=== PATIENT | female | born 1940 | race Caucasian/White ===

== ENCOUNTER 2017-12-13 09:21 | Inpatient (IN) | payer MEDICARE, OTHER ==
[2017-12-13 09:28] LABS: Glucose,Whole Blood 157 mg/dL (75-99)
[2017-12-13] MEDS ORDERED: SODIUM CHLORIDE 0.9% 500 ML IV STA (09:29)
[2017-12-13] MEDS ORDERED: SODIUM CHLORIDE 0.9% 1,000 ML IV STA ×2 (09:29→12:16)
--- NOTE | 2017-12-13 09:39 | ED ---
Weakness HPI - General Chief complaint: Weakness Stated complaint: Weakness Time Seen by Provider: 12/13/17 09:21 Source: patient, EMS, RN notes reviewed, old records reviewed Mode of arrival: EMS Limitations: no limitations - History of Present Illness Initial comments: This is a 77-year-old female with a history of hypertension diabetes dementia among other medical problems who was brought in for evaluation for hypoglycemia and dizziness. She apparently was found have a glucose in the 40s was given orange juice is still stayed in the 40s was given glucagon is still stayed in the 40s she also is had dizziness for past 3 days normally is able ambulate but now cannot without marked assistance. She also noted have a temperature 101.4 at the nursing facility today no reports of any cough rhinorrhea sore throat or dysuria. She did become more alert and route. Her glucose has improved it. No other reported problems at this time MD Complaint: generalized weakness - Related Data Home Medications Medication Instructions Recorded Confirmed Aspirin EC [Ecotrin] 325 mg PO HS 02/12/15 12/13/17 HYDROcodone/APAP 10-325MG [[place] 1 tab PO BID 02/12/15 12/13/17 10-325] Insulin Detemir [Levemir] 10 unit SQ QAM 02/12/15 12/13/17 Melatonin 3 mg PO HS PRN 02/12/15 12/13/17 Menthol [Biofreeze] 1 applic TOPICAL Q6H PRN 02/12/15 12/13/17 Metoprolol Succinate [Toprol XL] 25 mg PO DAILY 02/12/15 12/13/17 Milnacipran HCl [Savella] 50 mg PO HS 02/12/15 12/13/17 Pregabalin [Lyrica] 150 mg PO BID 02/12/15 12/13/17 buPROPion SR [Wellbutrin SR] 150 mg PO BID@0800,2000 02/12/15 12/13/17 metFORMIN HCL 1,000 mg PO BID 02/12/15 12/13/17 tiZANidine [Zanaflex] 2 mg PO BID PRN 02/12/15 12/13/17 Acetaminophen Tab [Tylenol Tab] 650 mg PO Q4H PRN 12/13/17 12/13/17 Cholecalciferol (Vitamin D3) 2,000 unit PO DAILY 12/13/17 12/13/17 [Vitamin D3] Furosemide [Lasix] 20 mg PO BID 12/13/17 12/13/17 HYDROcodone/APAP 10-325MG [[place] 1 tab PO Q8H PRN 12/13/17 12/13/17 10-325] Insulin Detemir [Levemir] 25 unit SQ HS 12/13/17 12/13/17 Lisinopril [Zestril] 10 mg PO DAILY 12/13/17 12/13/17 Pravastatin Sodium [Pravachol] 40 mg PO HS 12/13/17 12/13/17 Ranitidine HCl [Zantac] 150 mg PO BID 12/13/17 12/13/17 glipiZIDE [Glucotrol] 10 mg PO HS 12/13/17 12/13/17 guaiFENesin [guaiFENesin Oral 100 mg PO Q4H PRN 12/13/17 12/13/17 Solution] Allergies Allergy/AdvReac Type Severity Reaction Status Date / Time Aminoglycosides Allergy Unknown Verified 12/13/17 13:01 bacitracin Allergy Unknown Verified 12/13/17 13:01 [From Neosporin ([id number])] bacitracin zinc Allergy Unknown Verified 12/13/17 13:01 [From Neosporin ([id number])] iodine Allergy Unknown Verified 12/13/17 13:01 iron dextran complex Allergy Unknown Verified 12/13/17 13:01 levofloxacin [From Levaquin] Allergy Unknown Verified 12/13/17 13:01 neomycin [Neomycin] Allergy Unknown Verified 12/13/17 13:01 neomycin sulfate Allergy Unknown Verified 12/13/17 13:01 [From Neosporin ([id number])] nickel [Nickel] Allergy Unknown Verified 12/13/17 13:01 Penicillins Allergy Unknown Verified 12/13/17 13:01 polymyxin B Allergy Unknown Verified 12/13/17 13:01 [From Neosporin ([id number])] Quinolones Allergy Unknown Verified 12/13/17 13:01 Sulfa (Sulfonamide Allergy Unknown Verified 12/13/17 13:01 Antibiotics) trazodone HCl [From Desyrel] Allergy Unknown Verified 12/13/17 13:01 sulfacetamide sodium AdvReac Unknown Verified 02/12/15 09:00 [From Sulfamide] Review of Systems ROS Statement: Those systems with pertinent positive or pertinent negative responses have been documented in the HPI. ROS Other: All systems not noted in ROS Statement are negative. Past Medical History Past Medical History: Coronary Artery Disease (CAD), COPD, Dementia, Diabetes Mellitus, GERD/Reflux, Hyperlipidemia, Hypertension, Osteoarthritis (OA) Additional Past Medical History / Comment(s): 02/12/15 Pt presented to [facility] ER via EMs with altered mental status post fall and struck back of head per nursing facility. Pt c/o L hip and abdominal pain. Pt states she has had diarrhea x 3 days. Past medical hx obtained by speaking with pt and past and present medical records. 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 at [facility], falls, uti's, severe GERD, migraines, vascular dementia, veritgo, fibromyalgia, chronic back pain, polyps, sore throat. History of Any Multi-Drug Resistant Organisms: None Reported Past Surgical History: Joint Replacement Additional Past Surgical History / Comment(s): 2008 LEFT HIP REPLACEMENT, 2010 bilateral cataract removal, 1994 spinal fusion L4-L5 with screws, 1997 total R knee, esophagrams and scopes of stomach. Past Anesthesia/Blood Transfusion Reactions: No Reported Reaction Past Psychological History: Anxiety, Depression Smoking Status: Former smoker Past Alcohol Use History: None Reported Past Drug Use History: None Reported - Past Family History Mother Family Medical History: No Reported History Additional Family Medical History / Comment(s): Mother lived to be 90 yrs old. Father Family Medical History: No Reported History General Exam - General Exam Comments Initial Comments: This is a well-developed well-nourished awake alert oriented 3 female Limitations: no limitations General appearance: alert, in no apparent distress Head exam: Present: atraumatic, normocephalic, normal inspection Eye exam: Present: normal appearance, PERRL, EOMI. Absent: scleral icterus, conjunctival injection, periorbital swelling ENT exam: Present: mucous membranes dry Neck exam: Present: normal inspection. Absent: tenderness, meningismus, lymphadenopathy Respiratory exam: Present: normal lung sounds bilaterally. Absent: respiratory distress, wheezes, rales, rhonchi, stridor Cardiovascular Exam: Present: regular rate, normal rhythm, normal heart sounds. Absent: systolic murmur, diastolic murmur, rubs, gallop, clicks GI/Abdominal exam: Present: soft, normal bowel sounds. Absent: distended, tenderness, guarding, rebound, rigid Extremities exam: Present: normal inspection, full ROM, normal capillary refill. Absent: tenderness, pedal edema, joint swelling, calf tenderness Back exam: Present: normal inspection Neurological exam: Present: alert, oriented X3, CN II-XII intact Psychiatric exam: Present: normal affect, normal mood Skin exam: Present: warm, dry, intact, normal color. Absent: rash Course Vital Signs 12/13/17 12/13/17 12/13/17 09:23 10:22 11:36 Temperature 97 F L Pulse Rate 90 87 60 Respiratory 18 16 18 Rate Blood Pressure 113/65 119/84 143/62 O2 Sat by Pulse 91 L 97 98 Oximetry 12/13/17 12/13/17 12:26 13:01 Temperature Pulse Rate 80 84 Respiratory 18 18 Rate Blood Pressure 136/62 139/64 O2 Sat by Pulse 95 96 Oximetry - Reevaluation(s) Reevaluation #1: 12/13/17 13:30 Reevaluation of the patient after her initial encounter revealed no change Reevaluation #2: 12/13/17 13:31 He lactic acidosis is likely on the basis of acute renal failure the patient will be placed on antibiotic as a precaution. EKG Findings - EKG Results: EKG: interpreted by ERMEdgard, sinus rhythm (Sinus rhythm with first-degree AV block rate was 91. Interval to 12 QRS duration 86 QT since QTC of 46/499 evidence of left exodeviation pulmonary disease pattern and nonspecific inferior changes) Medical Decision Making - Medical Decision Making I did discuss findings with the patient and with Dr. Jean. Patient does demonstrate acute renal failure with CHF she did have a hypoglycemic episode also she'll be admitted with consultation by nephrology. - Lab Data Result diagrams: 12/13/17 09:48 12/13/17 09:48 Lab Results 12/13/17 12/13/17 12/13/17 Range/Units 09:26 09:48 09:48 WBC (3.8-10.6) k/uL RBC (3.80-5.40) m/uL Hgb (11.4-16.0) gm/dL Hct (34.0-46.0) % MCV (80.0-100.0) fL MCH (25.0-35.0) pg MCHC (31.0-37.0) g/dL RDW (11.5-15.5) % Plt Count (150-450) k/uL Neutrophils % % Lymphocytes % % Monocytes % % Eosinophils % % Basophils % % Neutrophils # (1.3-7.7) k/uL Lymphocytes # (1.0-4.8) k/uL Monocytes # (0-1.0) k/uL Eosinophils # (0-0.7) k/uL Basophils # (0-0.2) k/uL Sodium 144 (137-145) mmol/L Potassium 6.3 H* (3.5-5.1) mmol/L Chloride 101 (98-107) mmol/L Carbon Dioxide 19 L (22-30) mmol/L Anion Gap 24 mmol/L BUN 54 H (7-17) mg/dL Creatinine 4.70 H (0.52-1.04) mg/dL Est GFR (CKD-EPI)AfAm 10 (>60 ml/min/1.73 sqM) Est GFR (CKD-EPI)NonAf 9 (>60 ml/min/1.73 sqM) Glucose 162 H (74-99) mg/dL POC Glucose (mg/dL) 157 H (75-99) mg/dL POC Glu Instructional Design Manager ID He Segura Lactic Ac Sepsis Rflx Plasma Lactic Acid Mariano (0.7-2.0) mmol/L Calcium 8.4 (8.4-10.2) mg/dL Magnesium 2.0 (1.6-2.3) mg/dL Total Bilirubin 0.4 (0.2-1.3) mg/dL AST 16 (14-36) U/L ALT 19 (9-52) U/L Alkaline Phosphatase 57 (38-126) U/L Ammonia <9 (<30) umol/L Total Creatine Kinase (30-135) U/L CK-MB (CK-2) (0.0-2.4) ng/mL CK-MB (CK-2) Rel Index Troponin I (0.000-0.034) ng/mL Total Protein 6.1 L (6.3-8.2) g/dL Albumin 3.9 (3.5-5.0) g/dL Amylase 39 (30-110) U/L Lipase 67 (23-300) U/L Urine Color Urine Appearance (Clear) Urine pH (5.0-8.0) Ur Specific [place] (1.001-1.035) Urine Protein (Negative) Urine Glucose (UA) (Negative) Urine Ketones (Negative) Urine Blood (Negative) Urine Nitrite (Negative) Urine Bilirubin (Negative) Urine Urobilinogen (<2.0) mg/dL Ur Leukocyte Esterase (Negative) Urine RBC (0-5) /hpf Urine WBC (0-5) /hpf Ur Squamous Epith Cells (0-4) /hpf Urine Bacteria (None) /hpf Hyaline Casts (0-2) /lpf Urine Mucus (None) /hpf 12/13/17 12/13/17 12/13/17 Range/Units 09:48 09:48 09:48 WBC 17.2 H (3.8-10.6) k/uL RBC 4.08 (3.80-5.40) m/uL Hgb 12.6 (11.4-16.0) gm/dL Hct 38.7 (34.0-46.0) % MCV 94.9 (80.0-100.0) fL MCH 31.0 (25.0-35.0) pg MCHC 32.7 (31.0-37.0) g/dL RDW 13.0 (11.5-15.5) % Plt Count 228 (150-450) k/uL Neutrophils % 89 % Lymphocytes % 5 % Monocytes % 5 % Eosinophils % 0 % Basophils % 0 % Neutrophils # 15.2 H (1.3-7.7) k/uL Lymphocytes # 0.9 L (1.0-4.8) k/uL Monocytes # 0.8 (0-1.0) k/uL Eosinophils # 0.0 (0-0.7) k/uL Basophils # 0.1 (0-0.2) k/uL Sodium (137-145) mmol/L Potassium (3.5-5.1) mmol/L Chloride (98-107) mmol/L Carbon Dioxide (22-30) mmol/L Anion Gap mmol/L BUN (7-17) mg/dL Creatinine (0.52-1.04) mg/dL Est GFR (CKD-EPI)AfAm (>60 ml/min/1.73 sqM) Est GFR (CKD-EPI)NonAf (>60 ml/min/1.73 sqM) Glucose (74-99) mg/dL POC Glucose (mg/dL) (75-99) mg/dL POC Glu Instructional Design Manager ID Lactic Ac Sepsis Rflx Plasma Lactic Acid Mariano 5.1 H* (0.7-2.0) mmol/L Calcium (8.4-10.2) mg/dL Magnesium (1.6-2.3) mg/dL Total Bilirubin (0.2-1.3) mg/dL AST (14-36) U/L ALT (9-52) U/L Alkaline Phosphatase (38-126) U/L Ammonia (<30) umol/L Total Creatine Kinase 28 L (30-135) U/L CK-MB (CK-2) 1.3 (0.0-2.4) ng/mL CK-MB (CK-2) Rel Index 4.6 Troponin I 0.016 (0.000-0.034) ng/mL Total Protein (6.3-8.2) g/dL Albumin (3.5-5.0) g/dL Amylase (30-110) U/L Lipase (23-300) U/L Urine Color Urine Appearance (Clear) Urine pH (5.0-8.0) Ur Specific [place] (1.001-1.035) Urine Protein (Negative) Urine Glucose (UA) (Negative) Urine Ketones (Negative) Urine Blood (Negative) Urine Nitrite (Negative) Urine Bilirubin (Negative) Urine Urobilinogen (<2.0) mg/dL Ur Leukocyte Esterase (Negative) Urine RBC (0-5) /hpf Urine WBC (0-5) /hpf Ur Squamous Epith Cells (0-4) /hpf Urine Bacteria (None) /hpf Hyaline Casts (0-2) /lpf Urine Mucus (None) /hpf 12/13/17 12/13/17 Range/Units 10:21 11:28 WBC (3.8-10.6) k/uL RBC (3.80-5.40) m/uL Hgb (11.4-16.0) gm/dL Hct (34.0-46.0) % MCV (80.0-100.0) fL MCH (25.0-35.0) pg MCHC (31.0-37.0) g/dL RDW (11.5-15.5) % Plt Count (150-450) k/uL Neutrophils % % Lymphocytes % % Monocytes % % Eosinophils % % Basophils % % Neutrophils # (1.3-7.7) k/uL Lymphocytes # (1.0-4.8) k/uL Monocytes # (0-1.0) k/uL Eosinophils # (0-0.7) k/uL Basophils # (0-0.2) k/uL Sodium (137-145) mmol/L Potassium (3.5-5.1) mmol/L Chloride (98-107) mmol/L Carbon Dioxide (22-30) mmol/L Anion Gap mmol/L BUN (7-17) mg/dL Creatinine (0.52-1.04) mg/dL Est GFR (CKD-EPI)AfAm (>60 ml/min/1.73 sqM) Est GFR (CKD-EPI)NonAf (>60 ml/min/1.73 sqM) Glucose (74-99) mg/dL POC Glucose (mg/dL) (75-99) mg/dL POC Glu Instructional Design Manager ID Lactic Ac Sepsis Rflx Y Plasma Lactic Acid Mariano (0.7-2.0) mmol/L Calcium (8.4-10.2) mg/dL Magnesium (1.6-2.3) mg/dL Total Bilirubin (0.2-1.3) mg/dL AST (14-36) U/L ALT (9-52) U/L Alkaline Phosphatase (38-126) U/L Ammonia (<30) umol/L Total Creatine Kinase (30-135) U/L CK-MB (CK-2) (0.0-2.4) ng/mL CK-MB (CK-2) Rel Index Troponin I (0.000-0.034) ng/mL Total Protein (6.3-8.2) g/dL Albumin (3.5-5.0) g/dL Amylase (30-110) U/L Lipase (23-300) U/L Urine Color Yellow Urine Appearance Cloudy H (Clear) Urine pH 5.0 (5.0-8.0) Ur Specific [place] 1.014 (1.001-1.035) Urine Protein 1+ H (Negative) Urine Glucose (UA) Negative (Negative) Urine Ketones Trace H (Negative) Urine Blood Negative (Negative) Urine Nitrite Negative (Negative) Urine Bilirubin Negative (Negative) Urine Urobilinogen <2.0 (<2.0) mg/dL Ur Leukocyte Esterase Negative (Negative) Urine RBC 1 (0-5) /hpf Urine WBC 1 (0-5) /hpf Ur Squamous Epith Cells <1 (0-4) /hpf Urine Bacteria Rare H (None) /hpf Hyaline Casts 3 H (0-2) /lpf Urine Mucus Occasional H (None) /hpf - Radiology Data Radiology results: report reviewed (I did review the imaging and reports which demonstrate CHF and pleural effusions bilaterally.), image reviewed Disposition Clinical Impression: Acute renal failure (ARF), Hypoglycemia, Lactic acidosis, Hyperkalemia Disposition: ADMITTED IP TO THIS [facility] Condition: Stable Referrals: Nimisha Ferrara MD [Primary Care Provider] - 1-2 days
[2017-12-13 10:13] LABS: Basophils # (A) 0.1 k/uL (0-0.2); Basophils % (A) 0 %; Eosinophils % (A) 0 %; HCT 38.7 % (34.0-46.0); HGB 12.6 gm/dL (11.4-16.0); Lymphocytes # (A) 0.9 k/uL (1.0-4.8); Lymphocytes % (A) 5 %; MCHC 32.7 g/dL (31.0-37.0); MCV 94.9 fL (80.0-100.0); Mean Platelet Volume 7.9; Monocytes # (A) 0.8 k/uL (0-1.0); Monocytes % (A) 5 %; Neutrophils # (A) 15.2 k/uL (1.3-7.7); Neutrophils % (A) 89 %; Platelet Count 228 k/uL (150-450); RBC 4.08 m/uL (3.80-5.40); WBC 17.2 k/uL (3.8-10.6)
[2017-12-13 10:19] LABS: Albumin 3.9 g/dL (3.5-5.0); Calcium 8.4 mg/dL (8.4-10.2); Total Bilirubin 0.4 mg/dL (0.2-1.3); Total Protein 6.1 g/dL (6.3-8.2)
[2017-12-13 10:22] LABS: Potassium 6.3 mmol/L (3.5-5.1)
[2017-12-13 10:44] LABS: Creatine Kinase MB 1.3 ng/mL (0.0-2.4); Troponin I 0.016 ng/mL (0.000-0.034)
--- NOTE | 2017-12-13 11:25 | XR ---
EXAMINATION TYPE: XR chest 2V DATE OF EXAM: 12/13/2017 HISTORY: cough. REFERENCE: Previous study dated 11/16/2013. FINDINGS: The heart is enlarged. There is vascular congestion and subtle interstitial change. There a re small, bilateral effusions. There is bibasilar atelectasis. IMPRESSION: 1. FINDINGS MOST CONSISTENT WITH CONGESTIVE HEART FAILURE. 2. BILATERAL EFFUSIONS. 3. CARDIOMEGALY. 4. BIBASILAR ATELECTATIC CHANGE.
--- NOTE | 2017-12-13 11:29 | CT ---
EXAMINATION TYPE: CT brain wo con DATE OF EXAM: 12/13/2017 COMPARISON: Previous study dated 02/12/2015. HISTORY: Weakness and dizziness CT DLP: 1036 mGycm Automated exposure control for dose reduction was used. FINDINGS: There are mild, generalized changes of sulcal prominence and ventriculomegaly, compatible with atroph ic change. There is mild, diffuse periventricular white matter change compatible with small vessel is chemic change. No acute focal lesion, mass effect or midline shift is seen. I do not see evidence of intracranial blood. Visualized portions of the paranasal sinuses and mastoids are clear. The bony calvarium is intact. IMPRESSION: 1. NO ACUTE INTRACRANIAL LESION. 2. DEGENERATIVE CHANGE.
[2017-12-13 11:43] LABS: Appearance,Urine Cloudy (Clear); Bacteria,Urine Rare /hpf; Bilirubin,Urine Negative (Negative); Blood,Urine Negative (Negative); Color,Urine Yellow; Glucose,Urine (UA) Negative (Negative); Hyaline Casts,Urine 3 /lpf (0-2); Ketones,Urine Trace (Negative); Leukocyte Esterase,Urine Negative (Negative); Mucus,Urine Occasional /hpf; Nitrite,Urine Negative (Negative); Protein,Urine 1+ (Negative); RBC,Urine 1 /hpf (0-5); Specific Gravity,Urine 1.014 (1.001-1.035); Squamous Epithelial Cell,Urine <1 /hpf (0-4); Urobilinogen,Urine <2.0 mg/dL (<2.0); WBC,Urine 1 /hpf (0-5)
[2017-12-13] MEDS ORDERED: cefTRIAXone IN SWFI 1,000 MG/10 ML SYRINGE IVP STA (12:16)
[2017-12-13] MEDS ORDERED: FUROSEMIDE 10 MG/ML 4 ML VIAL IV STA (13:32)
[2017-12-13] MEDS ORDERED: NALOXONE 0.4 MG/ML 1 ML VIAL IV PRN (13:33)
[2017-12-13] MEDS ORDERED: HYDROcodone/APAP 10-325MG 1 EACH TAB PO PRN (13:35)
[2017-12-13] MEDS ORDERED: guaiFENesin SYRUP 100MG/5ML 200 MG/10 ML CUP PO PRN (13:35)
[2017-12-13] MEDS ORDERED: MELATONIN 3 MG TABLET PO PRN (13:35)
[2017-12-13] MEDS ORDERED: METHYL SALICYLATE/MENTHOL CREAM 5 OZ TOPICAL PRN (13:35)
[2017-12-13] MEDS: SODIUM POLYSTYRENE SULFONATE 15 GM/60 ML BOTTLE PO STA ×2 (13:55→13:58)
[2017-12-13] MEDS ORDERED: SODIUM POLYSTYRENE SULFONATE 15 GM/60 ML BOTTLE PO STA (13:58)
[2017-12-13 14:46] VITALS: BMI 18.3
[2017-12-13] MEDS: metFORMIN 500 MG TAB PO SCH (15:59)
[2017-12-13] MEDS: FUROSEMIDE 20 MG TAB PO SCH (15:59)
[2017-12-13] MEDS: IPRATROPIUM-ALBUTEROL 3 ML NEB INHALATION SCH ×2 (16:25→20:09)
[2017-12-13 17:13] LABS: Glucose,Whole Blood 146 mg/dL (75-99)
[2017-12-13] MEDS: FAMOTIDINE 20 MG TAB PO SCH (19:40)
[2017-12-13] MEDS: PREGABALIN 75 MG CAP PO SCH (19:40)
[2017-12-13] MEDS: ASPIRIN 325 MG TAB PO SCH (19:40)
[2017-12-13] MEDS: buPROPion SR 150 MG TABLET.ER PO SCH (19:40)
[2017-12-13] MEDS ORDERED: IPRATROPIUM-ALBUTEROL 3 ML NEB INHALATION PRN (20:11)
[2017-12-13 20:39] LABS: Glucose,Whole Blood 108 mg/dL (75-99)
[2017-12-13] MEDS: glipiZIDE 10 MG TAB PO SCH (20:47)
[2017-12-13] MEDS: PRAVASTATIN SODIUM 40 MG TAB PO SCH (20:47)
[2017-12-13] MEDS ORDERED: SAVELLA 50 MG PO SCH (21:00)
[2017-12-13] MEDS ORDERED: INSULIN DETEMIR 100 UNIT/ML 10 ML VIAL SQ SCH (21:00)
[2017-12-14] MEDS ORDERED: SODIUM CHLORIDE 0.9% 500 ML IV ONE (00:08)
[2017-12-14] MEDS: SODIUM CHLORIDE 0.9% 1,000 ML IV SCH ×2 (01:03→15:20)
[2017-12-14 06:21] LABS: Glucose,Whole Blood 98 mg/dL (75-99)
[2017-12-14 06:41] LABS: Basophils % (A) 0 %; Eosinophils % (A) 0 %; HCT 34.9 % (34.0-46.0); HGB 11.7 gm/dL (11.4-16.0); Lymphocytes # (A) 1.2 k/uL (1.0-4.8); Lymphocytes % (A) 11 %; MCH 31.2 pg (25.0-35.0); MCHC 33.6 g/dL (31.0-37.0); Mean Platelet Volume 8.3; Monocytes # (A) 0.7 k/uL (0-1.0); Monocytes % (A) 7 %; Neutrophils # (A) 8.7 k/uL (1.3-7.7); Neutrophils % (A) 80 %; Platelet Count 199 k/uL (150-450); RBC 3.76 m/uL (3.80-5.40); RDW 13.3 % (11.5-15.5); WBC 10.8 k/uL (3.8-10.6)
[2017-12-14 06:53] LABS: Calcium 7.7 mg/dL (8.4-10.2); Potassium 4.6 mmol/L (3.5-5.1)
[2017-12-14] MEDS: metFORMIN 500 MG TAB PO SCH (09:03)
[2017-12-14] MEDS: PREGABALIN 75 MG CAP PO SCH ×2 (09:09→20:51)
[2017-12-14] MEDS: FAMOTIDINE 20 MG TAB PO SCH ×2 (09:09→20:09)
[2017-12-14] MEDS: buPROPion SR 150 MG TABLET.ER PO SCH ×2 (09:10→20:09)
[2017-12-14] MEDS: FUROSEMIDE 20 MG TAB PO SCH (09:10)
[2017-12-14] MEDS: CHOLECALCIFEROL 1,000 UNIT TAB PO SCH (09:10)
[2017-12-14] MEDS: METOPROLOL SUCCINATE (ER) 25 MG TAB.ER.24H PO SCH (09:10)
[2017-12-14] MEDS: INSULIN DETEMIR 100 UNIT/ML 10 ML VIAL SQ SCH ×2 (11:00→20:49)
--- NOTE | 2017-12-14 11:57 | P.HPIM ---
History of Present Illness H&P Date: 12/14/17 Chief Complaint: Hypoglycemia This is a 77-year-old female well-known to me as a long-term resident at a local [facility] with complex past medical history noted below presented to the emergency room with hypoglycemia. Patient was found to be confused and blood glucose check at the [facility] was in the 40s. Patient was given orange juice and glucagon with some improvement in her medication. Patient was brought to the emergency room and underwent computed tomography scan of the brain showing no acute intracranial findings. Her initial lab work showed evidence of acute kidney injury with significant lactic acidosis. Patient herself does not have any recollection of what happened. She said that she is not sure why she is in the hospital. She is awake and alert. She is oriented 2. She does not have any complaint at this time. She said that she does not feel hungry. She did not eat breakfast this morning. She denies abdominal pain , nausea, vomiting, or abnormal bowel movement. She was noted to have significant cardiomegaly with evidence of fluid overload on chest x-ray. Patient herself denies any shortness of breath. She is not known to have any underlying heart failure. Review of Systems Review of system: 14 points review of systems were obtained and were negative except to what were mentioned in the HPI. Past Medical History Past Medical History: Coronary Artery Disease (CAD), COPD, Dementia, Diabetes Mellitus, GERD/Reflux, Hyperlipidemia, Hypertension, Osteoarthritis (OA) Additional Past Medical History / Comment(s): 02/12/15 Pt presented to [facility] ER via [facility] with altered mental status post fall and struck back of head per nursing facility. Pt c/o L hip and abdominal pain. Pt states she has had diarrhea x 3 days. Past medical hx obtained by speaking with pt and past and present medical records. 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 at [facility], falls, uti's, severe GERD, migraines, vascular dementia, veritgo, fibromyalgia, chronic back pain, polyps, sore throat. History of Any Multi-Drug Resistant Organisms: None Reported Past Surgical History: Joint Replacement Additional Past Surgical History / Comment(s): 2008 LEFT HIP REPLACEMENT, 2010 bilateral cataract removal, 1994 spinal fusion L4-L5 with screws, 1997 total R knee, esophagrams and scopes of stomach. Past Anesthesia/Blood Transfusion Reactions: No Reported Reaction Past Psychological History: Anxiety, Depression Additional Psychological History / Comment(s): Pt resides in [facility]. She states recently she has stayed in bed because she has not been feeling well but prior to that they assisted her to a wheelchair. She needs assistance with. bathing and dressing and toileting. She feeds herself. Smoking Status: Former smoker Past Alcohol Use History: None Reported Additional Past Alcohol Use History / Comment(s): Pt states she was a 1 1/2 ppd smoker which she started at age 21 and 1 1/2 yrs ago more or less but will smoke a couple cigs on family outings. She states she used to be a weekend drinker >7/week but. stopped that many yrs ago. Pt is on a regular thin liquid diet. Past Drug Use History: None Reported - Past Family History Mother Family Medical History: No Reported History Additional Family Medical History / Comment(s): Mother lived to be 90 yrs old. Father Family Medical History: No Reported History Medications and Allergies Home Medications Medication Instructions Recorded Confirmed Type Aspirin EC [Ecotrin] 325 mg PO HS 02/12/15 12/13/17 History HYDROcodone/APAP 10-325MG [Hester 1 tab PO BID 02/12/15 12/13/17 History 10-325] Insulin Detemir [Levemir] 10 unit SQ QAM 02/12/15 12/13/17 History Melatonin 3 mg PO HS PRN 02/12/15 12/13/17 History Menthol [Biofreeze] 1 applic TOPICAL Q6H PRN 02/12/15 12/13/17 History Metoprolol Succinate [Toprol XL] 25 mg PO DAILY 02/12/15 12/13/17 History Milnacipran HCl [Savella] 50 mg PO HS 02/12/15 12/13/17 History Pregabalin [Lyrica] 150 mg PO BID 02/12/15 12/13/17 History buPROPion SR [Wellbutrin SR] 150 mg PO BID@0800,2000 02/12/15 12/13/17 History metFORMIN HCL 1,000 mg PO BID 02/12/15 12/13/17 History tiZANidine [Zanaflex] 2 mg PO BID PRN 02/12/15 12/13/17 History Acetaminophen Tab [Tylenol Tab] 650 mg PO Q4H PRN 12/13/17 12/13/17 History Cholecalciferol (Vitamin D3) 2,000 unit PO DAILY 12/13/17 12/13/17 History [Vitamin D3] Furosemide [Lasix] 20 mg PO BID 12/13/17 12/13/17 History HYDROcodone/APAP 10-325MG [Hester 1 tab PO Q8H PRN 12/13/17 12/13/17 History 10-325] Insulin Detemir [Levemir] 25 unit SQ HS 12/13/17 12/13/17 History Lisinopril [Zestril] 10 mg PO DAILY 12/13/17 12/13/17 History Pravastatin Sodium [Pravachol] 40 mg PO HS 12/13/17 12/13/17 History Ranitidine HCl [Zantac] 150 mg PO BID 12/13/17 12/13/17 History glipiZIDE [Glucotrol] 10 mg PO HS 12/13/17 12/13/17 History guaiFENesin [guaiFENesin Oral 100 mg PO Q4H PRN 12/13/17 12/13/17 History Solution] Allergies Allergy/AdvReac Type Severity Reaction Status Date / Time Aminoglycosides Allergy Unknown Verified 12/13/17 13:01 bacitracin Allergy Unknown Verified 12/13/17 13:01 [From Neosporin ([id number])] bacitracin zinc Allergy Unknown Verified 12/13/17 13:01 [From Neosporin ([id number])] iodine Allergy Unknown Verified 12/13/17 13:01 iron dextran complex Allergy Unknown Verified 12/13/17 13:01 levofloxacin [From Levaquin] Allergy Unknown Verified 12/13/17 13:01 neomycin [Neomycin] Allergy Unknown Verified 12/13/17 13:01 neomycin sulfate Allergy Unknown Verified 12/13/17 13:01 [From Neosporin ([id number])] nickel [Nickel] Allergy Unknown Verified 12/13/17 13:01 Penicillins Allergy Unknown Verified 12/13/17 13:01 polymyxin B Allergy Unknown Verified 12/13/17 13:01 [From Neosporin ([id number])] Quinolones Allergy Unknown Verified 12/13/17 13:01 Sulfa (Sulfonamide Allergy Unknown Verified 12/13/17 13:01 Antibiotics) trazodone HCl [From Desyrel] Allergy Unknown Verified 12/13/17 13:01 sulfacetamide sodium AdvReac Unknown Verified 02/12/15 09:00 [From Sulfamide] Physical Exam Vitals: Vital Signs Temp Pulse Pulse Resp BP BP BP 12/14/17 08:00 98.8 F 98 18 125/57 12/14/17 04:00 98.7 F 95 18 125/60 12/14/17 02:00 112/51 119/54 12/13/17 23:45 98.4 F 96 18 102/55 12/13/17 19:30 98.4 F 93 18 147/67 12/13/17 16:00 18 12/13/17 14:42 96.9 F L 89 18 159/74 12/13/17 14:15 97.4 F L 88 20 153/69 12/13/17 13:01 84 18 139/64 12/13/17 12:26 80 18 136/62 Pulse Ox 12/14/17 08:00 92 L 12/14/17 04:00 92 L 12/14/17 02:00 12/13/17 23:45 97 12/13/17 19:30 92 L 12/13/17 16:00 12/13/17 14:42 94 L 12/13/17 14:15 96 12/13/17 13:01 96 12/13/17 12:26 95 Intake and Output 12/13/17 12/14/17 12/14/17 22:59 06:59 14:59 Intake Total 1050 0 Output Total 500 Balance 550 0 Intake: Intake, IV Titration 950 Amount Sodium Chloride 0.9% 1, 450 000 ml @ 75 mls/hr IV . [id number] [facility] Rx#:[id number] Sodium Chloride 0.9% 500 500 ml @ 999 mls/hr IV .Q31M ONE Rx#:[id number] Oral 100 0 Output: Urine 500 Other: Voiding Method Diaper Diaper Incontinent Incontinent # Voids 0 Weight 50.1 kg General: The patient is awake and alert, in no distress Eye: there is normal conjunctiva bilaterally. Neck: The neck is supple, there is no JVD. Cardiovascular: Normal S1-S2, no S3-S4, no murmurs. Respiratory: Lungs clear to auscultation bilaterally Gastrointestinal: Abdomen is soft, nontender Musculoskeletal: There is no pedal edema. Neurological:. Speech is normal. Skin: Skin is warm and dry Results CBC & Chem 7: 12/14/17 06:25 12/14/17 06:25 Labs: Abnormal Lab Results - Last 24 Hours (Table) 12/13/17 12/13/17 12/13/17 Range/Units 14:05 16:49 19:06 WBC (3.8-10.6) k/uL RBC (3.80-5.40) m/uL Neutrophils # (1.3-7.7) k/uL Sodium (137-145) mmol/L Chloride (98-107) mmol/L Carbon Dioxide (22-30) mmol/L BUN (7-17) mg/dL Creatinine (0.52-1.04) mg/dL POC Glucose (mg/dL) 146 H (75-99) mg/dL Plasma Lactic Acid Mariano 2.9 H* 2.6 H* (0.7-2.0) mmol/L Calcium (8.4-10.2) mg/dL 12/13/17 12/13/17 12/14/17 Range/Units 20:36 23:10 06:25 WBC 10.8 H (3.8-10.6) k/uL RBC 3.76 L (3.80-5.40) m/uL Neutrophils # 8.7 H (1.3-7.7) k/uL Sodium (137-145) mmol/L Chloride (98-107) mmol/L Carbon Dioxide (22-30) mmol/L BUN (7-17) mg/dL Creatinine (0.52-1.04) mg/dL POC Glucose (mg/dL) 108 H (75-99) mg/dL Plasma Lactic Acid Mariano 4.3 H* (0.7-2.0) mmol/L Calcium (8.4-10.2) mg/dL 12/14/17 Range/Units 06:25 WBC (3.8-10.6) k/uL RBC (3.80-5.40) m/uL Neutrophils # (1.3-7.7) k/uL Sodium 146 H (137-145) mmol/L Chloride 108 H (98-107) mmol/L Carbon Dioxide 18 L (22-30) mmol/L BUN 52 H (7-17) mg/dL Creatinine 4.40 H (0.52-1.04) mg/dL POC Glucose (mg/dL) (75-99) mg/dL Plasma Lactic Acid Mariano (0.7-2.0) mmol/L Calcium 7.7 L (8.4-10.2) mg/dL Assessment and Plan Assessment: 1. Hypoglycemia: Related to low by mouth intake and insulin use. Continue to hold diabetes medications for now. Dietitian consulted. 2. Acute kidney injury with significant lactic acidosis secondary to dehydration and metformin use. Lactic acid is back to normal. Discontinue metformin. Hold nephrotoxic for now. Continue IV fluid hydration. Check postvoid residual to rule out obstructive uropathy. 3. Type 2 diabetes mellitus, well controlled. Last A1c 7.6. Hold insulin for now until blood glucose are within acceptable range and patient started eating again. 4. Essential hypertension: Blood pressure within acceptable range. Lisinopril on hold secondary to kidney injury 5. Cardiomegaly with evidence of fluid overload, I would check BNP. Echocardiogram ordered. 6. Urinary tract infection, started on IV ceftriaxone awaiting urine culture
[2017-12-14 12:00] LABS: Glucose,Whole Blood 130 mg/dL (75-99)
[2017-12-14] MEDS: cefTRIAXone IN SWFI 1,000 MG/10 ML SYRINGE IVP SCH (12:35)
--- NOTE | 2017-12-14 13:01 | ECHOF ---
Referral Reason:CHF? MEASUREMENTS -------- HEIGHT: 165.1 cm WEIGHT: 49.9 kg BP: 125/57 RVIDd: 3.0 cm (< 3.3) IVSd: 1.0 cm (0.6 - 1.1) LVIDd: 4.0 cm (3.9 - 5.3) LVPWd: 1.1 cm (0.6 - 1.1) IVSs: 1.6 cm LVIDs: 2.9 cm LVPWs: 1.3 cm LA Diam: 3.1 cm (2.7 - 3.8) LAESV Index (A-L): 26.44 ml/m Ao Diam: 3.6 cm (2.0 - 3.7) AV Cusp: 1.9 cm (1.5 - 2.6) MV EXCURSION: 10.412 mm (> 18.000) MV EF SLOPE: 60 mm/s (70 - 150) EPSS: 0.1 cm MV E Ed: 1.08 m/s MV DecT: 172 ms MV A Ed: 1.04 m/s MV E/A Ratio: 1.04 RAP: 5.00 mmHg RVSP: 39.29 mmHg FINDINGS -------- Sinus rhythm. This was a technically good study. The left ventricular size is normal. There is borderline concentric left ventricular hypertrophy. Overall left ventricular systolic function is normal with, an EF between 55 - 60 %. The right ventricle is normal in size. Normal LA size by volume 22+/-6 ml/m2. The right atrium is normal in size. There is mild aortic valve sclerosis. Mild mitral annular calcification present. Mild mitral regurgitation is present. Mild tricuspid regurgitation present. There is mild pulmonary hypertension. The right ventricular systolic pressure, as measured by Doppler, is 39.29mmHg. The pulmonic valve was not well visualized. There is no pulmonic regurgitation present. The aortic root size is normal. Normal inferior vena cava with normal inspiratory collapse consistent with estimated right atrial pre ssure of 5 mmHg. There is no pericardial effusion. CONCLUSIONS -------- 1. Sinus rhythm. 2. This was a technically good study. 3. The left ventricular size is normal. 4. There is borderline concentric left ventricular hypertrophy. 5. Overall left ventricular systolic function is normal with, an EF between 55 - 60 %. 6. Normal LA size by volume 22+/-6 ml/m2. 7. There is mild aortic valve sclerosis. 8. Mild mitral annular calcification present. 9. Mild mitral regurgitation is present. 10. Mild tricuspid regurgitation present. 11. There is mild pulmonary hypertension. 12. The pulmonic valve was not well visualized. 13. There is no pulmonic regurgitation present. 14. The aortic root size is normal. 15. Normal inferior vena cava with normal inspiratory collapse consistent with estimated right atrial pressure of 5 mmHg. 16. There is no pericardial effusion. SUPERVISOR PURIFICATION: Josey Moreno RDCS
--- NOTE | 2017-12-14 15:30 | CONS ---
CONSULTATION REASON FOR CONSULT: Renal failure. HISTORY OF PRESENT ILLNESS: Patient is a 77-year-old female who was admitted to the hospital yesterday with the low blood sugars at the [facility], her blood sugars were in the 40s. Patient denies any previous history of kidney diseases. Her serum creatinine was noted to be at 4.4 mg/dL. Yesterday her creatinine was 4.7. Review of previous labs shows a serum creatinine of 1.2 on 10/06/2017. Patient's blood pressure has not been low prior to admission. She was maintained on lisinopril. I do not see any nonsteroidal anti- inflammatory agents on her prior list. Currently, patient is incontinent. Her chest x-ray on admission showed evidence of congestive heart failure and patient has received IV Lasix. She is; however, now on normal saline at 75 mL an hour. PAST MEDICAL HISTORY: Significant for hypertension, coronary artery disease, COPD, history of dementia, type 2 diabetes, gastroesophageal reflux disease, hyperlipidemia, hypertension, osteoarthritis, history of TIA versus CVA and left footdrop, previous UTIs, fibromyalgia. PAST SURGICAL HISTORY: Left hip arthroplasty, bilateral cataract surgery, spinal fusion, right knee arthroplasty, endoscopies. SOCIAL HISTORY: Negative for smoking, drug abuse or alcohol abuse. Patient is a former smoker. MEDICATIONS: Medications at home included aspirin, melatonin, Toprol, Lyrica, Wellbutrin, Zanaflex, metformin, Tylenol, vitamin D3, Lasix, insulin, Zestril, Pravachol, Zantac, Glucotrol. ALLERGIES: Are multiple including SULFA, TRAZODONE, NEOSPORIN, PENICILLIN, LEVAQUIN, NEOMYCIN, IODINE. PHYSICAL EXAMINATION: Currently patient is comfortable, awake, she is not in any acute distress. Blood pressure was 154/71, heart rate 87 per minute, patient is afebrile. Examination of the heart, S1, S2. Examination of the lungs, bilateral breath sounds are heard. Abdomen is soft, nontender. Exam of the lower extremities shows no evidence of edema. Patient is moving all 4 extremities. LABS: Show sodium 146, potassium 4.6, chloride 108, CO2 is 18, BUN 52, serum creatinine 4.3, lactic acid was elevated at 4.3. ProBNP was 4,200. ASSESSMENT: 1. Acute kidney injury,. ATN currently nonoliguric. Patient's UA shows evidence of hyaline casts. She is not on any nephrotoxic agents. Patient received Lasix in the ER, but is now maintained on IV fluids. Chest x-ray on admission did show evidence of pulmonary vascular congestion; however, at this time, patient does not appear to be significantly volume overloaded. Her lactic acid was elevated. I will continue with the IV fluids for now and monitor for any worsening respiratory status and repeat labs in a.m. Check ultrasound of the kidneys if not done recently. 2. Hypoglycemia, currently improved. 3. Rule out pneumonia. 4. History of coronary artery disease. 5. Underlying dementia. 6. Metabolic acidosis. The anion gap secondary to renal failure and possibly related to metformin as well. PLAN: Continue off of metformin. Continue with IV fluids. Repeat labs in a.m. Continue to hold off on BRAVO inhibitors. Will check ultrasound of the kidneys. Thank you for this consultation. Will continue to follow the patient with you during her hospitalization. MMODL / IJN: [id number] /
[2017-12-14 17:12] LABS: Glucose,Whole Blood 174 mg/dL (75-99)
--- NOTE | 2017-12-14 18:25 | US ---
EXAMINATION TYPE: US renals and bladder DATE OF EXAM: 12/14/2017 COMPARISON: NONE CLINICAL HISTORY: rf. Renal failure FINDINGS: Technical limitations due to patient's body habitus and large amount of overlying bowel c ontent RIGHT KIDNEY: 9.3 x 4.4 x 5.6 cm. There is no soft tissue mass or mass effect. No lithiasis. There i s no hydronephrosis. LEFT KIDNEY: 9.9 x 5.3 x 4.6 cm. There is no soft tissue mass or mass effect. No lithiasis. There is no hydronephrosis. BLADDER: appears wnl. Bilateral Jets seen: no FINDINGS: NO ACUTE PROCESS OR FOCAL FINDINGS.
[2017-12-14] MEDS: ASPIRIN 325 MG TAB PO SCH (20:09)
[2017-12-14] MEDS: PRAVASTATIN SODIUM 40 MG TAB PO SCH (20:10)
[2017-12-14 20:15] LABS: Glucose,Whole Blood 138 mg/dL (75-99)
[2017-12-14] MEDS: glipiZIDE 10 MG TAB PO SCH (20:51)
[2017-12-15] MEDS: SODIUM CHLORIDE 0.9% 1,000 ML IV SCH ×2 (05:19→05:58)
[2017-12-15 07:14] LABS: Glucose,Whole Blood 121 mg/dL (75-99)
[2017-12-15 07:54] LABS: Basophils % (A) 0 %; Eosinophils # (A) 0.2 k/uL (0-0.7); Eosinophils % (A) 2 %; HGB 11.5 gm/dL (11.4-16.0); Lymphocytes # (A) 1.2 k/uL (1.0-4.8); Lymphocytes % (A) 12 %; MCH 31.2 pg (25.0-35.0); MCHC 32.8 g/dL (31.0-37.0); MCV 95.1 fL (80.0-100.0); Monocytes # (A) 0.6 k/uL (0-1.0); Monocytes % (A) 6 %; Neutrophils # (A) 7.9 k/uL (1.3-7.7); Neutrophils % (A) 79 %; Platelet Count 189 k/uL (150-450); RBC 3.68 m/uL (3.80-5.40); RDW 13.5 % (11.5-15.5)
[2017-12-15] MEDS: cefTRIAXone IN SWFI 1,000 MG/10 ML SYRINGE IVP SCH (08:07)
[2017-12-15] MEDS: PREGABALIN 75 MG CAP PO SCH ×2 (08:08→21:08)
[2017-12-15] MEDS: FAMOTIDINE 20 MG TAB PO SCH (08:08)
[2017-12-15] MEDS: METOPROLOL SUCCINATE (ER) 25 MG TAB.ER.24H PO SCH (08:08)
[2017-12-15] MEDS: INSULIN DETEMIR 100 UNIT/ML 10 ML VIAL SQ SCH ×3 (08:08→21:08)
[2017-12-15] MEDS: CHOLECALCIFEROL 1,000 UNIT TAB PO SCH (08:08)
[2017-12-15] MEDS: buPROPion SR 150 MG TABLET.ER PO SCH ×2 (08:08→21:05)
[2017-12-15 08:17] LABS: Calcium 8.5 mg/dL (8.4-10.2); Magnesium 1.6 mg/dL (1.6-2.3); Phosphorus 4.2 mg/dL (2.5-4.5); Potassium 4.3 mmol/L (3.5-5.1)
[2017-12-15 11:39] LABS: Glucose,Whole Blood 285 mg/dL (75-99)
--- NOTE | 2017-12-15 12:11 | P.PN ---
Subjective Progress Note Date: 12/15/17 No events overnight. Creatinine trending down. Objective - Vital Signs Vital signs: Vital Signs Temp 97.7 F 12/15/17 07:15 Pulse 93 12/15/17 08:10 Resp 16 12/15/17 08:10 BP 138/64 12/15/17 07:15 Pulse Ox 93 L 12/15/17 07:15 Intake & Output 12/14/17 12/15/17 12/15/17 18:59 06:59 18:59 Intake Total 222 1340 Output Total 850 Balance -628 1340 Weight 50.1 kg Intake: Intake, IV Titration 750 Amount Sodium Chloride 0.9% 1, 750 000 ml @ 75 mls/hr IV . [id number] [facility] Rx#:[id number] Oral 222 590 Output: Urine 850 Other: Voiding Method Diaper Diaper Bedpan Incontinent Incontinent Diaper Incontinent # Voids 3 - Exam General: The patient is awake and alert, in no distress Eye: there is normal conjunctiva bilaterally. Neck: The neck is supple, there is no JVD. Cardiovascular: Normal S1-S2, no S3-S4, no murmurs. Respiratory: Lungs clear to auscultation bilaterally Gastrointestinal: Abdomen is soft, nontender Musculoskeletal: There is no pedal edema. Neurological:. Speech is normal. Skin: Skin is warm and dry - Labs CBC & Chem 7: 12/15/17 07:16 12/15/17 07:16 Labs: Abnormal Lab Results - Last 24 Hours (Table) 12/14/17 12/14/17 12/15/17 Range/Units 17:11 20:14 07:13 RBC (3.80-5.40) m/uL Neutrophils # (1.3-7.7) k/uL Sodium (137-145) mmol/L Chloride (98-107) mmol/L Carbon Dioxide (22-30) mmol/L BUN (7-17) mg/dL Creatinine (0.52-1.04) mg/dL Glucose (74-99) mg/dL POC Glucose (mg/dL) 174 H 138 H 121 H (75-99) mg/dL 12/15/17 12/15/17 12/15/17 Range/Units 07:16 07:16 11:38 RBC 3.68 L (3.80-5.40) m/uL Neutrophils # 7.9 H (1.3-7.7) k/uL Sodium 147 H (137-145) mmol/L Chloride 108 H (98-107) mmol/L Carbon Dioxide 21 L (22-30) mmol/L BUN 41 H (7-17) mg/dL Creatinine 3.17 H (0.52-1.04) mg/dL Glucose 120 H (74-99) mg/dL POC Glucose (mg/dL) 285 H (75-99) mg/dL Microbiology - Last 24 Hours (Table) 12/13/17 09:48 Blood Culture - Preliminary Blood No Growth after 48 hours Assessment and Plan Assessment: 1. Hypoglycemia: Related to low by mouth intake and insulin use. Continue to hold diabetes medications for now. Dietitian consulted. Blood glucose within acceptable range 2. Acute kidney injury with significant lactic acidosis secondary to dehydration and metformin use. Lactic acid is back to normal. Discontinue metformin. Hold nephrotoxic for now. Continue IV fluid hydration. Ultrasound of the kidney showed no acute finding 3. Type 2 diabetes mellitus, well controlled. Last A1c 7.6. Hold insulin for now until blood glucose are within acceptable range 4. Essential hypertension: Blood pressure within acceptable range. Lisinopril on hold secondary to kidney injury 5. Diastolic heart failure: With evidence of fluid overload on chest x-ray and elevated BNP. Echocardiogram showed preserved ejection fraction and no significant valvular abnormalities. Hold off on diuresis now given acute kidney injury. 6. Urinary tract infection, started on IV ceftriaxone will finish 3 days course.
[2017-12-15] MEDS ORDERED: SODIUM CHLORIDE 0.45% 1,000 ML IV SCH (15:45)
--- NOTE | 2017-12-15 16:31 | PN ---
PROGRESS NOTE Patient is seen for followup for acute kidney injury. Patient's serum creatinine was 4.7 on admission and is down to 3.1 now. Previous creatinine was as low as 0.8 mg/dL in 2017. The patient is currently maintained on IV fluids at 75 mL an hours. Her oral intake is not a greatest. PHYSICAL EXAMINATION: On examination today, blood pressure of 137/61, heart rate 94 per minute. Patient is afebrile. Examination of the heart: S1, S2. Examination lungs: Distant breath sounds bases. Abdomen is soft, nontender with status of the lungs. There is minimal trace crackles heard on the left base. Examination of lower extremity shows no significant edema. LABS: Show sodium 147, potassium 4.3, BUN 41, serum creatinine 3.17, hemoglobin 11.5 g/dL. ASSESSMENT: 1. Acute kidney injury, appears to be prerenal, currently slowly improving with IV fluids. Will continue with the IV fluids, but at a decreased rate. Check chest x- ray today and repeat labs in a.m. 2. Mild hypernatremia. Will change IV fluids to half-normal saline. 3. Hypoglycemia on initial admission, currently improved. 4. Underlying dementia. 5. Metabolic acidosis on admission with elevated lactic acid as well. The patient is currently off of metformin. PLAN: Change IV fluids to half-normal saline 80. I agree with decreasing to 50 mL an hours and repeat labs in a.m. Check chest x-ray. MMODL / IJN: [id number] /
[2017-12-15 17:15] LABS: Glucose,Whole Blood 284 mg/dL (75-99)
[2017-12-15 20:24] LABS: Glucose,Whole Blood 256 mg/dL (75-99)
[2017-12-15] MEDS: ASPIRIN 325 MG TAB PO SCH (21:05)
[2017-12-15] MEDS: PRAVASTATIN SODIUM 40 MG TAB PO SCH (21:05)
[2017-12-15] MEDS: glipiZIDE 10 MG TAB PO SCH (21:05)
[2017-12-16 01:50] LABS: Glucose,Whole Blood 276 mg/dL (75-99)
[2017-12-16 07:30] LABS: Basophils % (A) 1 %; Eosinophils # (A) 0.3 k/uL (0-0.7); Eosinophils % (A) 4 %; HCT 32.2 % (34.0-46.0); HGB 10.7 gm/dL (11.4-16.0); Lymphocytes # (A) 1.4 k/uL (1.0-4.8); Lymphocytes % (A) 20 %; MCH 30.7 pg (25.0-35.0); MCHC 33.1 g/dL (31.0-37.0); MCV 92.5 fL (80.0-100.0); Mean Platelet Volume 8.7; Monocytes # (A) 0.4 k/uL (0-1.0); Monocytes % (A) 7 %; Neutrophils # (A) 4.5 k/uL (1.3-7.7); Neutrophils % (A) 66 %; Platelet Count 179 k/uL (150-450); RBC 3.48 m/uL (3.80-5.40); RDW 13.2 % (11.5-15.5); WBC 6.8 k/uL (3.8-10.6)
[2017-12-16 07:43] LABS: Calcium 8.5 mg/dL (8.4-10.2); Magnesium 1.6 mg/dL (1.6-2.3); Phosphorus 3.2 mg/dL (2.5-4.5); Potassium 3.8 mmol/L (3.5-5.1)
[2017-12-16 08:04] LABS: Glucose,Whole Blood 218 mg/dL (75-99)
[2017-12-16] MEDS: CHOLECALCIFEROL 1,000 UNIT TAB PO SCH (08:23)
[2017-12-16] MEDS: cefTRIAXone IN SWFI 1,000 MG/10 ML SYRINGE IVP SCH (08:23)
[2017-12-16] MEDS: buPROPion SR 150 MG TABLET.ER PO SCH ×2 (08:23→21:08)
[2017-12-16] MEDS: INSULIN DETEMIR 100 UNIT/ML 10 ML VIAL SQ SCH ×2 (08:24→21:09)
[2017-12-16] MEDS: METOPROLOL SUCCINATE (ER) 25 MG TAB.ER.24H PO SCH (08:24)
[2017-12-16] MEDS: FAMOTIDINE 20 MG TAB PO SCH (08:24)
[2017-12-16] MEDS: PREGABALIN 75 MG CAP PO SCH ×2 (08:26→21:52)
[2017-12-16] MEDS ORDERED: MAGNESIUM SULFATE-D5W PMX 1 GM in DEXTROSE/WATER 1 100ML.BAG IVPB ONE (10:39)
--- NOTE | 2017-12-16 10:39 | P.PN ---
Subjective Patient is seen in follow-up for acute kidney injury. Her baseline creatinine was 1 and was elevated at 4.7 on admission. It is down to 2.2 today. She is currently maintained on half-normal saline at 50 mL an hour. Oral intake is good. Denies vomiting or diarrhea. Admits to good urine output. Hemodynamically stable. Vital signs are stable. General: The patient appeared well nourished and normally developed. HEENT: Head exam is unremarkable. Neck is without jugular venous distension. LUNGS: Lungs are clear to auscultation and percussion. Breath sounds decreased. HEART: Rate and Rhythm are regular. First and second heart sounds normal. No murmurs, rubs or gallops. ABDOMEN: Abdominal exam reveals normal bowel sounds. Non-tender and non- distended. No evidence of peritonitis. EXTREMITITES: No clubbing, cyanosis, or edema. Objective - Vital Signs Vital signs: Vital Signs Temp 97.6 F 12/16/17 07:38 Pulse 82 12/16/17 07:38 Resp 16 12/16/17 07:38 BP 186/84 12/16/17 07:38 Pulse Ox 90 L 12/16/17 07:38 Intake & Output 12/15/17 12/16/17 12/16/17 18:59 06:59 18:59 Intake Total 400 Balance 400 Intake: Oral 400 Other: Voiding Method Bedpan Bedside Commode Diaper Bedpan Incontinent Diaper Incontinent # Voids 3 2 - Labs CBC & Chem 7: 12/16/17 07:12 12/16/17 07:12 Labs: Abnormal Lab Results - Last 24 Hours (Table) 12/15/17 12/15/17 12/15/17 Range/Units 11:38 17:14 20:23 RBC (3.80-5.40) m/uL Hgb (11.4-16.0) gm/dL Hct (34.0-46.0) % Chloride (98-107) mmol/L BUN (7-17) mg/dL Creatinine (0.52-1.04) mg/dL Glucose (74-99) mg/dL POC Glucose (mg/dL) 285 H 284 H 256 H (75-99) mg/dL 12/16/17 12/16/17 12/16/17 Range/Units 01:48 07:12 07:12 RBC 3.48 L (3.80-5.40) m/uL Hgb 10.7 L (11.4-16.0) gm/dL Hct 32.2 L (34.0-46.0) % Chloride 109 H (98-107) mmol/L BUN 30 H (7-17) mg/dL Creatinine 2.20 H (0.52-1.04) mg/dL Glucose 215 H (74-99) mg/dL POC Glucose (mg/dL) 276 H (75-99) mg/dL 12/16/17 Range/Units 07:38 RBC (3.80-5.40) m/uL Hgb (11.4-16.0) gm/dL Hct (34.0-46.0) % Chloride (98-107) mmol/L BUN (7-17) mg/dL Creatinine (0.52-1.04) mg/dL Glucose (74-99) mg/dL POC Glucose (mg/dL) 218 H (75-99) mg/dL Microbiology - Last 24 Hours (Table) 12/13/17 09:48 Blood Culture - Preliminary Blood No Growth after 48 hours Assessment and Plan Plan: Assessment: 1. Nonoliguric acute kidney injury mostly prerenal improved with IV hydration. Creatinine was 4.7 on admission and is down to 2.2 today. 2. Hypoglycemia on admission, resolved. 3. Mild hypernatremia improving with hypotonic fluid infusion. 4. Dementia. 5. Metabolic acidosis secondary to acute kidney injury. Improved. 6. Hypomagnesemia from poor oral intake. 7. Insulin-dependent diabetes mellitus. 8. Rule out chronic kidney disease. She is noted to have proteinuria and urinalysis which is likely secondary to underlying diabetic kidney disease. Plan: Continue half-normal saline to be run at 50 mL an hour. Encouraged oral intake. Avoid nephrotoxic agents and hypotensive episodes. Repeat electrolytes in the morning. Replace magnesium. 1 g IV today.
[2017-12-16 11:04] LABS: Glucose,Whole Blood 344 mg/dL (75-99)
[2017-12-16] MEDS ORDERED: INSULIN ASPART 100 UNIT/ML 1 ML 10 ML VIAL SQ ONE (11:14)
--- NOTE | 2017-12-16 11:38 | P.PN ---
Subjective Progress Note Date: 12/16/17 Patient is doing well today. She is feeling a little bit depressed but her kids are not around here. Her blood glucose was significantly elevated this morning. Her appetite is picking up. Her creatinine is trending down gradually but is not back to her baseline. Objective - Vital Signs Vital signs: Vital Signs Temp 97.6 F 12/16/17 07:38 Pulse 82 12/16/17 07:38 Resp 16 12/16/17 07:38 BP 186/84 12/16/17 07:38 Pulse Ox 90 L 12/16/17 07:38 Intake & Output 12/15/17 12/16/17 12/16/17 18:59 06:59 18:59 Intake Total 400 Balance 400 Weight 50.1 kg Intake: Oral 400 Other: Voiding Method Bedpan Bedside Commode Toilet Diaper Bedpan Bedside Commode Incontinent Diaper Diaper Incontinent Incontinent # Voids 3 2 - Exam General: The patient is awake and alert, in no distress Eye: there is normal conjunctiva bilaterally. Neck: The neck is supple, there is no JVD. Cardiovascular: Normal S1-S2, no S3-S4, no murmurs. Respiratory: Lungs clear to auscultation bilaterally Gastrointestinal: Abdomen is soft, nontender Musculoskeletal: There is no pedal edema. Neurological:. Speech is normal. Skin: Skin is warm and dry - Labs CBC & Chem 7: 12/16/17 07:12 12/16/17 07:12 Labs: Abnormal Lab Results - Last 24 Hours (Table) 12/15/17 12/15/17 12/15/17 Range/Units 11:38 17:14 20:23 RBC (3.80-5.40) m/uL Hgb (11.4-16.0) gm/dL Hct (34.0-46.0) % Chloride (98-107) mmol/L BUN (7-17) mg/dL Creatinine (0.52-1.04) mg/dL Glucose (74-99) mg/dL POC Glucose (mg/dL) 285 H 284 H 256 H (75-99) mg/dL 12/16/17 12/16/17 12/16/17 Range/Units 01:48 07:12 07:12 RBC 3.48 L (3.80-5.40) m/uL Hgb 10.7 L (11.4-16.0) gm/dL Hct 32.2 L (34.0-46.0) % Chloride 109 H (98-107) mmol/L BUN 30 H (7-17) mg/dL Creatinine 2.20 H (0.52-1.04) mg/dL Glucose 215 H (74-99) mg/dL POC Glucose (mg/dL) 276 H (75-99) mg/dL 12/16/17 12/16/17 Range/Units 07:38 11:02 RBC (3.80-5.40) m/uL Hgb (11.4-16.0) gm/dL Hct (34.0-46.0) % Chloride (98-107) mmol/L BUN (7-17) mg/dL Creatinine (0.52-1.04) mg/dL Glucose (74-99) mg/dL POC Glucose (mg/dL) 218 H 344 H (75-99) mg/dL Microbiology - Last 24 Hours (Table) 12/13/17 09:48 Blood Culture - Preliminary Blood No Growth after 48 hours Assessment and Plan Assessment: 1. Hypoglycemia on presentation: Related to low by mouth intake and insulin use. Now resolved. Dietitian consulted. Blood glucose more on the higher side right now. 2. Acute kidney injury with significant lactic acidosis secondary to dehydration and metformin use. Lactic acid is back to normal. Discontinue metformin. Hold nephrotoxic for now. Continue IV fluid hydration. Ultrasound of the kidney showed no acute finding. Nephrology following closely. 3. Type 2 diabetes mellitus, well controlled. Last A1c 7.6. Add sliding scale insulin. I adjusted her Levemir dose. We will continue to monitor closely. 4. Essential hypertension: Blood pressure within acceptable range. Lisinopril on hold secondary to kidney injury 5. Diastolic heart failure: With evidence of fluid overload on chest x-ray and elevated BNP. Echocardiogram showed preserved ejection fraction and no significant valvular abnormalities. Hold off on diuresis now given acute kidney injury. 6. Urinary tract infection, started on IV ceftriaxone will finish 3 days course.
[2017-12-16] MEDS: hydrALAZINE HCL 25 MG TAB PO SCH ×3 (11:46→21:08)
[2017-12-16 17:06] LABS: Glucose,Whole Blood 309 mg/dL (75-99)
[2017-12-16] MEDS: INSULIN ASPART 100 UNIT/ML 1 ML 10 ML VIAL SQ SCH ×2 (17:39→21:09)
[2017-12-16 20:12] LABS: Glucose,Whole Blood 205 mg/dL (75-99)
[2017-12-16] MEDS: PRAVASTATIN SODIUM 40 MG TAB PO SCH (21:08)
[2017-12-16] MEDS: ASPIRIN 325 MG TAB PO SCH (21:08)
[2017-12-16] MEDS: glipiZIDE 10 MG TAB PO SCH (21:08)
[2017-12-17 07:11] LABS: Glucose,Whole Blood 183 mg/dL (75-99)
[2017-12-17] MEDS: ACETAMINOPHEN TAB 325 MG TAB PO PRN ×2 (07:36→15:55)
[2017-12-17] MEDS: CHOLECALCIFEROL 1,000 UNIT TAB PO SCH (07:37)
[2017-12-17] MEDS: hydrALAZINE HCL 25 MG TAB PO SCH ×2 (07:37→15:56)
[2017-12-17] MEDS: PREGABALIN 75 MG CAP PO SCH (07:37)
[2017-12-17] MEDS: METOPROLOL SUCCINATE (ER) 25 MG TAB.ER.24H PO SCH (07:37)
[2017-12-17] MEDS: buPROPion SR 150 MG TABLET.ER PO SCH (07:37)
[2017-12-17] MEDS: FAMOTIDINE 20 MG TAB PO SCH (07:38)
[2017-12-17] MEDS: cefTRIAXone IN SWFI 1,000 MG/10 ML SYRINGE IVP SCH (07:38)
[2017-12-17] MEDS: INSULIN ASPART 100 UNIT/ML 1 ML 10 ML VIAL SQ SCH ×2 (07:38→12:41)
[2017-12-17 07:49] LABS: Basophils % (A) 1 %; Eosinophils # (A) 0.3 k/uL (0-0.7); Eosinophils % (A) 4 %; HCT 34.6 % (34.0-46.0); HGB 11.2 gm/dL (11.4-16.0); Lymphocytes # (A) 1.5 k/uL (1.0-4.8); Lymphocytes % (A) 22 %; MCH 30.2 pg (25.0-35.0); MCHC 32.2 g/dL (31.0-37.0); MCV 93.7 fL (80.0-100.0); Mean Platelet Volume 8.3; Monocytes # (A) 0.6 k/uL (0-1.0); Monocytes % (A) 8 %; Neutrophils # (A) 4.5 k/uL (1.3-7.7); Neutrophils % (A) 64 %; Platelet Count 217 k/uL (150-450); RBC 3.69 m/uL (3.80-5.40); RDW 13.4 % (11.5-15.5)
[2017-12-17 08:14] LABS: Calcium 8.9 mg/dL (8.4-10.2); Magnesium 1.7 mg/dL (1.6-2.3); Phosphorus 3.4 mg/dL (2.5-4.5); Potassium 3.7 mmol/L (3.5-5.1)
[2017-12-17 08:48] VITALS: RESP 16
[2017-12-17] MEDS ORDERED: INSULIN DETEMIR 100 UNIT/ML 10 ML VIAL SQ SCH (09:00)
--- NOTE | 2017-12-17 11:20 | P.PN ---
Subjective Patient is seen in follow-up for acute kidney injury. Her baseline creatinine was 1 and was elevated at 4.7 on admission. It is down to 1.83 today. Oral intake is good. Denies vomiting or diarrhea. Admits to good urine output. Hemodynamically stable. Sodium level 147 today. Vital signs are stable. General: The patient appeared well nourished and normally developed. HEENT: Head exam is unremarkable. Neck is without jugular venous distension. LUNGS: Lungs are clear to auscultation and percussion. Breath sounds decreased. HEART: Rate and Rhythm are regular. First and second heart sounds normal. No murmurs, rubs or gallops. ABDOMEN: Abdominal exam reveals normal bowel sounds. Non-tender and non- distended. No evidence of peritonitis. EXTREMITITES: No clubbing, cyanosis, or edema. Objective - Vital Signs Vital signs: Vital Signs Temp 97.6 F 12/17/17 07:15 Pulse 80 12/17/17 07:38 Resp 16 12/17/17 07:38 BP 160/94 12/17/17 07:15 Pulse Ox 92 L 12/17/17 07:49 Intake & Output 12/16/17 12/17/17 12/17/17 18:59 06:59 18:59 Intake Total 240 Balance 240 Weight 50.1 kg Intake: Oral 240 Other: Voiding Method Toilet Toilet Toilet Bedside Commode Bedside Commode Bedside Commode Diaper Diaper Diaper Incontinent Incontinent Incontinent # Voids 3 1 - Labs CBC & Chem 7: 12/17/17 07:03 12/17/17 07:03 Labs: Abnormal Lab Results - Last 24 Hours (Table) 12/16/17 12/16/17 12/17/17 Range/Units 17:05 20:10 07:03 RBC 3.69 L (3.80-5.40) m/uL Hgb 11.2 L (11.4-16.0) gm/dL Sodium (137-145) mmol/L Chloride (98-107) mmol/L BUN (7-17) mg/dL Creatinine (0.52-1.04) mg/dL Glucose (74-99) mg/dL POC Glucose (mg/dL) 309 H 205 H (75-99) mg/dL 12/17/17 12/17/17 Range/Units 07:03 07:10 RBC (3.80-5.40) m/uL Hgb (11.4-16.0) gm/dL Sodium 147 H (137-145) mmol/L Chloride 110 H (98-107) mmol/L BUN 22 H (7-17) mg/dL Creatinine 1.83 H (0.52-1.04) mg/dL Glucose 147 H (74-99) mg/dL POC Glucose (mg/dL) 183 H (75-99) mg/dL Microbiology - Last 24 Hours (Table) 12/13/17 09:48 Blood Culture - Preliminary Blood No Growth after 72 hours Assessment and Plan Plan: Assessment: 1. Nonoliguric acute kidney injury mostly prerenal improved with IV hydration. Creatinine was 4.7 on admission and is down to 1.83 today. 2. Hypoglycemia on admission, resolved. 3. Hypernatremia secondary to lack of oral water intake. 4. Dementia. 5. Metabolic acidosis secondary to acute kidney injury. Improved. 6. Hypomagnesemia from poor oral intake. 7. Insulin-dependent diabetes mellitus. 8. Rule out chronic kidney disease. She is noted to have proteinuria and urinalysis which is likely secondary to underlying diabetic kidney disease. Plan: Start D5W at 50 mL an hour. Encouraged oral intake. Avoid nephrotoxic agents and hypotensive episodes. Repeat electrolytes in the morning. Replace magnesium. 1 g IV today.
[2017-12-17] MEDS ORDERED: DEXTROSE 5% IN WATER 1,000 ML IV SCH (11:30)
[2017-12-17] MEDS ORDERED: MAGNESIUM SULFATE-D5W PMX 1 GM in DEXTROSE/WATER 1 100ML.BAG IVPB ONE (11:30)
[2017-12-17 11:44] LABS: Glucose,Whole Blood 339 mg/dL (75-99)
[2017-12-17 15:59] VITALS: BP 161/74; PULSE 92; TEMP 98
--- NOTE | 2017-12-17 16:14 | P.DS ---
Providers Date of admission: 12/13/17 13:33 Expected date of discharge: 12/17/17 Attending physician: Nimisha Ferrara Consults: 12/13/17 13:34 Consult Physician Routine Consulting Provider: Sherri Regalado Consult Reason/Comments: Acute renal failure with CHF Do you want consulting provider notified?: Yes Primary care physician: [facility] Course: 1. Hypoglycemia on presentation: Related to low by mouth intake and insulin use. Now resolved. Dietitian consulted. Blood glucose more on the higher side right now. 2. Acute kidney injury with significant lactic acidosis secondary to dehydration and metformin use. Lactic acid is back to normal. Discontinue metformin. Hold nephrotoxic for now. Improved with IV fluid hydration. Ultrasound of the kidney showed no acute finding. Creatinine on discharge 1.8 3. Type 2 diabetes mellitus, well controlled. Last A1c 7.6. I adjusted her Levemir dose. We will continue to monitor closely. 4. Essential hypertension: Blood pressure within acceptable range. Lisinopril on hold secondary to kidney injury 5. Diastolic heart failure: With evidence of fluid overload on chest x-ray and elevated BNP. Echocardiogram showed preserved ejection fraction and no significant valvular abnormalities. Hold off on diuresis now given acute kidney injury. 6. Urinary tract infection, started on IV ceftriaxone will finish 3 days course. Patient Condition at Discharge: Stable Plan - Discharge Summary New Discharge Prescriptions: New hydrALAZINE HCL [Apresoline] 25 mg PO TID tab Insulin Aspart [NovoLOG (formulary)] 0 unit SQ ACHS vial Insulin Detemir [Levemir] 20 unit SQ QAM syr Continue tiZANidine [Zanaflex] 2 mg PO BID PRN PRN Reason: Muscle Spasm Milnacipran HCl [Savella] 50 mg PO HS Metoprolol Succinate [Toprol XL] 25 mg PO DAILY Pregabalin [Lyrica] 150 mg PO BID Aspirin EC [Ecotrin] 325 mg PO HS Melatonin 3 mg PO HS PRN PRN Reason: Insomnia buPROPion SR [Wellbutrin SR] 150 mg PO BID@0800,2000 Acetaminophen Tab [Tylenol] 650 mg PO Q4H PRN PRN Reason: Pain Ranitidine HCl [Zantac] 150 mg PO BID Cholecalciferol (Vitamin D3) [Vitamin D3] 2,000 unit PO DAILY Pravastatin Sodium [Pravachol] 40 mg PO HS HYDROcodone/APAP 10-325MG [Pipestem 10-325] 1 tab PO BID #30 tab Changed glipiZIDE [Glucotrol] 10 mg PO BID #30 tab Insulin Detemir [Levemir] 10 unit SQ HS #0 Discontinued metFORMIN HCL 1,000 mg PO BID Insulin Detemir [Levemir] 10 unit SQ QAM Menthol [Biofreeze] 1 applic TOPICAL Q6H PRN PRN Reason: Pain HYDROcodone/APAP 10-325MG [Pipestem 10-325] 1 tab PO Q8H PRN PRN Reason: Pain guaiFENesin [guaiFENesin Oral Solution] 100 mg PO Q4H PRN PRN Reason: Cough Furosemide [Lasix] 20 mg PO BID Lisinopril [Zestril] 10 mg PO DAILY Discharge Medication List Aspirin EC [Ecotrin] 325 mg PO HS 02/12/15 [History] Melatonin 3 mg PO HS PRN 02/12/15 [History] Metoprolol Succinate [Toprol XL] 25 mg PO DAILY 02/12/15 [History] Milnacipran HCl [Savella] 50 mg PO HS 02/12/15 [History] Pregabalin [Lyrica] 150 mg PO BID 02/12/15 [History] buPROPion SR [Wellbutrin SR] 150 mg PO BID@0800,2000 02/12/15 [History] tiZANidine [Zanaflex] 2 mg PO BID PRN 02/12/15 [History] Acetaminophen Tab [Tylenol] 650 mg PO Q4H PRN 12/13/17 [History] Cholecalciferol (Vitamin D3) [Vitamin D3] 2,000 unit PO DAILY 12/13/17 [History] Pravastatin Sodium [Pravachol] 40 mg PO HS 12/13/17 [History] Ranitidine HCl [Zantac] 150 mg PO BID 12/13/17 [History] HYDROcodone/APAP 10-325MG [Pipestem 10-325] 1 tab PO BID #30 tab 12/17/17 [Rx] Insulin Aspart [NovoLOG (formulary)] 0 unit SQ ACHS vial 12/17/17 [Rx] Insulin Detemir [Levemir] 10 unit SQ HS #0 12/17/17 [Rx] Insulin Detemir [Levemir] 20 unit SQ QAM syr 12/17/17 [Rx] glipiZIDE [Glucotrol] 10 mg PO BID #30 tab 12/17/17 [Rx] hydrALAZINE HCL [Apresoline] 25 mg PO TID tab 12/17/17 [Rx] Follow up Appointment(s)/Referral(s): Nimisha Ferrara MD [Primary Care Provider] - 1-2 days Discharge Disposition: TRANSFER TO SNF/ECF
[2017-12-17 17:21] LABS: Hemoglobin A1C 7.7 % (4.0-6.0)
--- NOTE | 2017-12-22 13:21 | CDI ---
Last Revision, July 2017 Documentation Clarification Form Date: 12/22/2017 12:00:00 AM From: DAVID Donovan; Felisa Rizzo Biology Instructor Phone: If you have a question about this query, please contact Felisa Rizzo Biology Instructor at [phone] between 8am and 5pm. Admit Date: 12/13/2017 1:33:00 PM Patient Name: Akua Roblero I Visit Number: [id number] Discharge Date: 12/17/2017 ATTENTION: The Clinical Documentation Specialists (CDI) and [facility] Coding Staff appreciate your assistance in clarifying documentation. Please respond to the clarification below the line at the bottom and electronically sign. The CDI & [facility] Coding staff will review the response and follow-up if needed. Please note: Queries are made part of the Legal Health Record. If you have any questions, please contact the author of this message via ITS. Dr. Nimisha Ferrara The patient presented with hypoglycemia. Acute renal failure is also on admission. Per consultation, she is noted to have proteinuria which is likely secondary to underlying diabetic kidney disease; rule out chronic kidney disease. Current BUN/CR/GFR: 52, 4.40, 9 Patients Baseline: BUN/CR/GFR: Baseline CR is 1. Discharge GFR 27 Treatment: IV fluids In order to capture the severity of condition, please clarify if the condition signifies: CKD ruled in CKD ruled out CKD Stage 1 (GFR > 90) CKD Stage 2 (GFR 60-89) CKD Stage 3 (GFR 30-59) CKD Stage 4 (GFR 15-29) CKD Stage 5 (GFR <15) ESRD Other, please specify Unable to determine MTDD
--- NOTE | 2018-01-13 09:33 | CDI ---
Documentation Clarification Form Date: 01/13/2018 12:00:00 AM From: DAVID Donovan; Felisa Rizzo Soil Specialist Phone: If you have a question about this query, please contact Felisa Rizzo Soil Specialist at [phone] between 8am and 5pm. Admit Date: 12/13/2017 1:33:00 PM Patient Name: Akua Roblero I Visit Number: [id number] Discharge Date: 12/17/2017 ATTENTION: The Clinical Documentation Specialists (CDI) and [facility] Coding Staff appreciate your assistance in clarifying documentation. Please respond to the clarification below the line at the bottom and electronically sign. The CDI & [facility] Coding staff will review the response and follow-up if needed. Please note: Queries are made part of the Legal Health Record. If you have any questions, please contact the author of this message via ITS. Dr. Nimisha Ferrara The patient presented with hypoglycemia and acute kidney injury. Fluid overload is documented, along with diagnostic heart failure. Chest x-ray showed small, bilateral effusions. BNP was elevated. Echocardiogram showed preserved ejection fraction. Diuretics were held due to renal failure. In your professional opinion, can you please clarify the acuity and type of CHF if known? Diastolic Heart Failure: Acute Chronic Acute on Chronic Unable to Determine Other, please specify MTDD
--- NOTE | 2018-01-18 10:18 | CDI ---
Documentation Clarification Form Date: 01/18/2018 12:00:00 AM From: DAVID Donovan; Felisa Rizzo Gas Fitter Helper Phone: If you have a question about this query, please contact Felisa Rizzo Gas Fitter Helper at [phone] between 8am and 5pm. Admit Date: 12/13/2017 1:33:00 PM Patient Name: Akua Roblero I Visit Number: [id number] Discharge Date: 12/17/2017 ATTENTION: The Clinical Documentation Specialists (CDI) and [facility] Coding Staff appreciate your assistance in clarifying documentation. Please respond to the clarification below the line at the bottom and electronically sign. The CDI & [facility] Coding staff will review the response and follow-up if needed. Please note: Queries are made part of the Legal Health Record. If you have any questions, please contact the author of this message via ITS. Dr. Nimisha Ferrara The patient presented with hypoglycemia and acute kidney injury. Fluid overload is documented, along with diastolic heart failure. Chest x-ray showed small, bilateral effusions. BNP was elevated. Echocardiogram showed preserved ejection fraction. Diuretics were held due to renal failure. In your professional opinion, can you please clarify the acuity of the documented diastolic CHF? Acute Chronic Acute on Chronic Unable to Determine Other, please specify MTDD
--- NOTE | 2018-01-22 13:42 | CDI ---
Documentation Clarification Form Date: 01/22/2018 12:00:00 AM From: DAVID Donovan; Felisa Rizzo Life Cycle Assessment Analyst Phone: If you have a question about this query, please contact Felisa Rizzo Life Cycle Assessment Analyst at [phone] between 8am and 5pm. Admit Date: 12/13/2017 1:33:00 PM Patient Name: Akua Roblero I Visit Number: [id number] Discharge Date: 12/17/2017 ATTENTION: The Clinical Documentation Specialists (CDI) and [facility] Coding Staff appreciate your assistance in clarifying documentation. Please respond to the clarification below the line at the bottom and electronically sign. The CDI & [facility] Coding staff will review the response and follow-up if needed. Please note: Queries are made part of the Legal Health Record. If you have any questions, please contact the author of this message via ITS. Dr. Nimisha Ferrara The patient presented with hypoglycemia and acute kidney injury. Fluid overload is documented, along with diagnostic heart failure. Chest x-ray showed small, bilateral effusions. BNP was elevated. Echocardiogram showed preserved ejection fraction. Diuretics were held due to renal failure. In your professional opinion, can you please clarify the acuity and type of CHF if known? Diastolic Heart Failure: Acute Chronic Acute on Chronic Unable to Determine Other, please specify MTDD
--- NOTE | 2018-01-26 09:08 | CDI ---
Documentation Clarification Form Date: 01/26/2018 12:00:00 AM From: DAVID Donovan; Felisa Rizzo Staff Veterinarian Phone: If you have a question about this query, please contact Felisa Rizzo Staff Veterinarian at [phone] between 8am and 5pm. Admit Date: 12/13/2017 1:33:00 PM Patient Name: Akua Roblero I Visit Number: [id number] Discharge Date: 12/17/2017 ATTENTION: The Clinical Documentation Specialists (CDI) and [facility] Coding Staff appreciate your assistance in clarifying documentation. Please respond to the clarification below the line at the bottom and electronically sign. The CDI & [facility] Coding staff will review the response and follow-up if needed. Please note: Queries are made part of the Legal Health Record. If you have any questions, please contact the author of this message via ITS. Dr. Nimisha Ferrara The patient presented with hypoglycemia and acute kidney injury. Fluid overload is documented, along with diagnostic heart failure. Chest x-ray showed small, bilateral effusions. BNP was elevated. Echocardiogram showed preserved ejection fraction. Diuretics were held due to renal failure. In your professional opinion, can you please clarify the acuity of CHF if known? Diastolic Heart Failure: Acute Chronic Acute on Chronic Unable to Determine Other, please specify chronic diastolic CHF MTDD
== END 2017-12-17 16:53 | DRG 638 ==
LOC: EC 09:21 → 6SEL 13:33 → 5MS5E 12-14 15:23
PROVIDERS: ADMIT Internal Medicine; ATTEND Internal Medicine
DX: E11.649 Type 2 diabetes mellitus with hypoglycemia without coma (principal); E87.0 Hyperosmolality and hypernatremia; E87.2 Acidosis; N39.0 Urinary tract infection, site not specified; I13.0 Hypertensive heart and chronic kidney disease with heart failure and stage 1 through stage 4 chronic kidney disease, or unspecified chronic kidney disease; I50.32 Chronic diastolic (congestive) heart failure; E78.5 Hyperlipidemia, unspecified; E83.42 Hypomagnesemia; E86.0 Dehydration; F03.90 Unspecified dementia, unspecified severity, without behavioral disturbance, psychotic disturbance, mood disturbance, and anxiety; F32.9 Major depressive disorder, single episode, unspecified; F41.9 Anxiety disorder, unspecified; I25.10 Atherosclerotic heart disease of native coronary artery without angina pectoris; J44.9 Chronic obstructive pulmonary disease, unspecified; N17.0 Acute kidney failure with tubular necrosis; K21.9 Gastro-esophageal reflux disease without esophagitis; N18.3 Chronic kidney disease, stage 3 (moderate); M79.7 Fibromyalgia; R32 Unspecified urinary incontinence; Z79.4 Long term (current) use of insulin; Z79.82 Long term (current) use of aspirin; Z87.440 Personal history of urinary (tract) infections; Z87.891 Personal history of nicotine dependence; Z98.1 Arthrodesis status; Z79.890 Hormone replacement therapy; Z79.891 Long term (current) use of opiate analgesic; Z79.899 Other long term (current) drug therapy; Z88.2 Allergy status to sulfonamides; Z88.8 Allergy status to other drugs, medicaments and biological substances; Z88.1 Allergy status to other antibiotic agents; Z91.041 Radiographic dye allergy status; Z98.42 Cataract extraction status, left eye; Z98.41 Cataract extraction status, right eye; Z96.642 Presence of left artificial hip joint; Z96.651 Presence of right artificial knee joint; E11.22 Type 2 diabetes mellitus with diabetic chronic kidney disease
CPT/HCPCS: 36415; 70450; 71046; 76770; 80048; 80053; 81001; 82140; 82150; 82550; 82553; 83036; 83605; 83690; 83735; 83880; 84100; 84484; 85025; 87040; 93005; 93306; 94760; 96361; 96374; 96375; 99285

== ENCOUNTER 2018-01-20 20:58 | Emergency (ER) | payer MEDICARE, OTHER ==
[2018-01-20] MEDS ORDERED: ceFAZolin 1,000 MG in DEXTROSE/WATER 1 50ML.BAG IVPB STA (21:47)
[2018-01-20] MEDS ORDERED: SODIUM CHLORIDE 0.9% 1,000 ML IV STA (21:47)
--- NOTE | 2018-01-20 22:03 | ED ---
General Adult HPI - General Chief complaint: Wound/Laceration Stated complaint: Hyperglycemia, laceration big toe Time Seen by Provider: 01/20/18 21:21 Source: patient, EMS, RN notes reviewed, old records reviewed Mode of arrival: EMS Limitations: physical limitation - History of Present Illness Initial comments: This is a 77-year-old female the ER today for evaluation. The patient resents for evaluation regards to the laceration. Patient does cut her own toenails, dermatologic, patient states she is. They Family cut the tip of her left great toe, mild bleeding originally but states the bleeding has ceased at this point. Patient transferred to ER for evaluation regarding laceration of left great toe. Patient is on blood thinners. Denies any other injury or complaint - Related Data Home Medications Medication Instructions Recorded Confirmed Aspirin EC [Ecotrin] 325 mg PO HS 02/12/15 12/13/17 Melatonin 3 mg PO HS PRN 02/12/15 12/13/17 Metoprolol Succinate [Toprol XL] 25 mg PO DAILY 02/12/15 12/13/17 Milnacipran HCl [Savella] 50 mg PO HS 02/12/15 12/13/17 Pregabalin [Lyrica] 150 mg PO BID 02/12/15 12/13/17 buPROPion SR [Wellbutrin SR] 150 mg PO BID@0800,2000 02/12/15 12/13/17 tiZANidine [Zanaflex] 2 mg PO BID PRN 02/12/15 12/13/17 Acetaminophen Tab [Tylenol] 650 mg PO Q4H PRN 12/13/17 12/13/17 Cholecalciferol (Vitamin D3) 2,000 unit PO DAILY 12/13/17 12/13/17 [Vitamin D3] Pravastatin Sodium [Pravachol] 40 mg PO HS 12/13/17 12/13/17 Ranitidine HCl [Zantac] 150 mg PO BID 12/13/17 12/13/17 Previous Rx's Medication Instructions Recorded HYDROcodone/APAP 10-325MG [Deville 1 tab PO BID #30 tab 12/17/17 10-325] Insulin Aspart [NovoLOG 0 unit SQ ACHS vial 12/17/17 (formulary)] Insulin Detemir [Levemir] 10 unit SQ HS #0 12/17/17 Insulin Detemir [Levemir] 20 unit SQ QAM syr 12/17/17 glipiZIDE [Glucotrol] 10 mg PO BID #30 tab 12/17/17 hydrALAZINE HCL [Apresoline] 25 mg PO TID tab 12/17/17 Allergies Allergy/AdvReac Type Severity Reaction Status Date / Time Aminoglycosides Allergy Unknown Verified 12/13/17 13:01 bacitracin Allergy Unknown Verified 12/13/17 13:01 [From Neosporin ([id number])] bacitracin zinc Allergy Unknown Verified 12/13/17 13:01 [From Neosporin ([id number])] iodine Allergy Unknown Verified 12/13/17 13:01 iron dextran complex Allergy Unknown Verified 12/13/17 13:01 levofloxacin [From Levaquin] Allergy Unknown Verified 12/13/17 13:01 neomycin [Neomycin] Allergy Unknown Verified 12/13/17 13:01 neomycin sulfate Allergy Unknown Verified 12/13/17 13:01 [From Neosporin ([id number]-[id number])] nickel [Nickel] Allergy Unknown Verified 12/13/17 13:01 Penicillins Allergy Unknown Verified 12/13/17 13:01 polymyxin B Allergy Unknown Verified 12/13/17 13:01 [From Neosporin ([id number])] Quinolones Allergy Unknown Verified 12/13/17 13:01 Sulfa (Sulfonamide Allergy Unknown Verified 12/13/17 13:01 Antibiotics) trazodone HCl [From Desyrel] Allergy Unknown Verified 12/13/17 13:01 sulfacetamide sodium AdvReac Unknown Verified 02/12/15 09:00 [From Sulfamide] Review of Systems ROS Statement: Those systems with pertinent positive or pertinent negative responses have been documented in the HPI. ROS Other: All systems not noted in ROS Statement are negative. Past Medical History Past Medical History: Coronary Artery Disease (CAD), COPD, Dementia, Diabetes Mellitus, GERD/Reflux, Hyperlipidemia, Hypertension, Osteoarthritis (OA) Additional Past Medical History / Comment(s): 02/12/15 Pt presented to [facility] ER via EMs with altered mental status post fall and struck back of head per nursing facility. Pt c/o L hip and abdominal pain. Pt states she has had diarrhea x 3 days. Past medical hx obtained by speaking with pt and past and present medical records. 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 at [facility], falls, uti's, severe GERD, migraines, vascular dementia, veritgo, fibromyalgia, chronic back pain, polyps, sore throat. History of Any Multi-Drug Resistant Organisms: None Reported Past Surgical History: Joint Replacement Additional Past Surgical History / Comment(s): 2008 LEFT HIP REPLACEMENT, 2010 bilateral cataract removal, 1994 spinal fusion L4-L5 with screws, 1997 total R knee, esophagrams and scopes of stomach. Past Anesthesia/Blood Transfusion Reactions: No Reported Reaction Past Psychological History: Anxiety, Depression Smoking Status: Former smoker Past Alcohol Use History: None Reported Past Drug Use History: None Reported - Past Family History Mother Family Medical History: No Reported History Additional Family Medical History / Comment(s): Mother lived to be 90 yrs old. Father Family Medical History: No Reported History General Exam - General Exam Comments Initial Comments: Left great toe laceration Limitations: physical limitation General appearance: alert, in no apparent distress Head exam: Present: atraumatic, normocephalic, normal inspection Eye exam: Present: normal appearance, PERRL, EOMI. Absent: scleral icterus, conjunctival injection, periorbital swelling ENT exam: Present: normal exam, mucous membranes moist Neck exam: Present: normal inspection. Absent: tenderness, meningismus, lymphadenopathy Respiratory exam: Present: normal lung sounds bilaterally. Absent: respiratory distress, wheezes, rales, rhonchi, stridor Cardiovascular Exam: Present: regular rate, normal rhythm, normal heart sounds. Absent: systolic murmur, diastolic murmur, rubs, gallop, clicks GI/Abdominal exam: Present: soft, normal bowel sounds. Absent: distended, tenderness, guarding, rebound, rigid Extremities exam: Present: normal inspection, full ROM, normal capillary refill. Absent: tenderness, pedal edema, joint swelling, calf tenderness Back exam: Present: normal inspection Neurological exam: Present: alert, oriented X3, CN II-XII intact Psychiatric exam: Present: normal affect, normal mood Skin exam: Present: warm, dry, intact, normal color. Absent: rash Course Vital Signs 01/20/18 21:06 Temperature 99.4 F Pulse Rate 80 Respiratory 19 Rate Blood Pressure 157/77 O2 Sat by Pulse 95 Oximetry - Reevaluation(s) Reevaluation #1: 01/20/18 22:09 Patient also said elevated blood sugar, this isnoticed by EMS. Patient has no complaints Reevaluation #2: 01/20/18 23:26 Patient agitated, wants to be discharged home EKG Findings - EKG Comments: EKG Findings:: EKG shows normal sinus S in I, [place] 1:30, QRS 80, QTC 442 Procedures - Laceration Laceration #1 Consent Obtained: verbal consent Time Out Performed: Yes Indication: laceration Site: foot, other (Toe) Size (cm): 2 Description: linear Size of Sutures: other (Gelfoam applied to laceration) Medical Decision Making - Medical Decision Making 77 female the ER for laceration to left great toe, laceration is repaired with wound care. Patient has small this limitation of left great toe. Patient placed on antibiotics discharged home, patient was hypoglycemic, that has resolved - Lab Data Result diagrams: 01/20/18 21:45 01/20/18 21:45 Lab Results 01/20/18 01/20/18 01/20/18 Range/Units 21:45 21:45 21:45 WBC 8.0 (3.8-10.6) k/uL RBC 3.61 L (3.80-5.40) m/uL Hgb 11.1 L (11.4-16.0) gm/dL Hct 34.1 (34.0-46.0) % MCV 94.6 (80.0-100.0) fL MCH 30.8 (25.0-35.0) pg MCHC 32.6 (31.0-37.0) g/dL RDW 13.8 (11.5-15.5) % Plt Count 208 (150-450) k/uL Neutrophils % 59 % Lymphocytes % 27 % Monocytes % 8 % Eosinophils % 3 % Basophils % 1 % Neutrophils # 4.7 (1.3-7.7) k/uL Lymphocytes # 2.2 (1.0-4.8) k/uL Monocytes # 0.6 (0-1.0) k/uL Eosinophils # 0.3 (0-0.7) k/uL Basophils # 0.1 (0-0.2) k/uL PT (9.0-12.0) sec INR (<1.2) APTT (22.0-30.0) sec Sodium 138 (137-145) mmol/L Potassium 6.1 H (3.5-5.1) mmol/L Chloride 104 (98-107) mmol/L Carbon Dioxide 22 (22-30) mmol/L Anion Gap 12 mmol/L BUN 38 H (7-17) mg/dL Creatinine 1.28 H (0.52-1.04) mg/dL Est GFR (CKD-EPI)AfAm 48 (>60 ml/min/1.73 sqM) Est GFR (CKD-EPI)NonAf 41 (>60 ml/min/1.73 sqM) Glucose 385 H (74-99) mg/dL Calcium 8.7 (8.4-10.2) mg/dL Phosphorus 4.2 (2.5-4.5) mg/dL Magnesium 2.1 (1.6-2.3) mg/dL Total Bilirubin 0.1 L (0.2-1.3) mg/dL AST 12 L (14-36) U/L ALT 18 (9-52) U/L Alkaline Phosphatase 69 (38-126) U/L Total Creatine Kinase 21 L (30-135) U/L CK-MB (CK-2) 0.9 (0.0-2.4) ng/mL CK-MB (CK-2) Rel Index 4.3 Troponin I <0.012 (0.000-0.034) ng/mL Total Protein 6.1 L (6.3-8.2) g/dL Albumin 3.6 (3.5-5.0) g/dL Urine Color Urine Appearance (Clear) Urine pH (5.0-8.0) Ur Specific [place] (1.001-1.035) Urine Protein (Negative) Urine Glucose (UA) (Negative) Urine Ketones (Negative) Urine Blood (Negative) Urine Nitrite (Negative) Urine Bilirubin (Negative) Urine Urobilinogen (<2.0) mg/dL Ur Leukocyte Esterase (Negative) Acetone, Qual Negative (Negative) 01/20/18 01/20/18 Range/Units 21:45 21:45 WBC (3.8-10.6) k/uL RBC (3.80-5.40) m/uL Hgb (11.4-16.0) gm/dL Hct (34.0-46.0) % MCV (80.0-100.0) fL MCH (25.0-35.0) pg MCHC (31.0-37.0) g/dL RDW (11.5-15.5) % Plt Count (150-450) k/uL Neutrophils % % Lymphocytes % % Monocytes % % Eosinophils % % Basophils % % Neutrophils # (1.3-7.7) k/uL Lymphocytes # (1.0-4.8) k/uL Monocytes # (0-1.0) k/uL Eosinophils # (0-0.7) k/uL Basophils # (0-0.2) k/uL PT 9.6 (9.0-12.0) sec INR 1.0 (<1.2) APTT 23.2 (22.0-30.0) sec Sodium (137-145) mmol/L Potassium (3.5-5.1) mmol/L Chloride (98-107) mmol/L Carbon Dioxide (22-30) mmol/L Anion Gap mmol/L BUN (7-17) mg/dL Creatinine (0.52-1.04) mg/dL Est GFR (CKD-EPI)AfAm (>60 ml/min/1.73 sqM) Est GFR (CKD-EPI)NonAf (>60 ml/min/1.73 sqM) Glucose (74-99) mg/dL Calcium (8.4-10.2) mg/dL Phosphorus (2.5-4.5) mg/dL Magnesium (1.6-2.3) mg/dL Total Bilirubin (0.2-1.3) mg/dL AST (14-36) U/L ALT (9-52) U/L Alkaline Phosphatase (38-126) U/L Total Creatine Kinase (30-135) U/L CK-MB (CK-2) (0.0-2.4) ng/mL CK-MB (CK-2) Rel Index Troponin I (0.000-0.034) ng/mL Total Protein (6.3-8.2) g/dL Albumin (3.5-5.0) g/dL Urine Color Light Yellow Urine Appearance Clear (Clear) Urine pH 5.0 (5.0-8.0) Ur Specific [place] 1.014 (1.001-1.035) Urine Protein Negative (Negative) Urine Glucose (UA) 4+ H (Negative) Urine Ketones Negative (Negative) Urine Blood Negative (Negative) Urine Nitrite Negative (Negative) Urine Bilirubin Negative (Negative) Urine Urobilinogen <2.0 (<2.0) mg/dL Ur Leukocyte Esterase Negative (Negative) Acetone, Qual (Negative) Disposition Clinical Impression: Hyperglycemia, Dehydration, Laceration of left great toe Disposition: HOME SELF-CARE Condition: Good Instructions: Skin Avulsion (ED) Is patient prescribed a controlled substance at d/c from ED?: No Referrals: Nimisha Ferrara MD [Primary Care Provider] - 1-2 days
[2018-01-20 22:08] LABS: Basophils # (A) 0.1 k/uL (0-0.2); Basophils % (A) 1 %; Eosinophils # (A) 0.3 k/uL (0-0.7); Eosinophils % (A) 3 %; HCT 34.1 % (34.0-46.0); HGB 11.1 gm/dL (11.4-16.0); Lymphocytes # (A) 2.2 k/uL (1.0-4.8); Lymphocytes % (A) 27 %; MCH 30.8 pg (25.0-35.0); MCHC 32.6 g/dL (31.0-37.0); MCV 94.6 fL (80.0-100.0); Mean Platelet Volume 8.5; Monocytes # (A) 0.6 k/uL (0-1.0); Monocytes % (A) 8 %; Neutrophils # (A) 4.7 k/uL (1.3-7.7); Neutrophils % (A) 59 %; Platelet Count 208 k/uL (150-450); RBC 3.61 m/uL (3.80-5.40); RDW 13.8 % (11.5-15.5)
[2018-01-20 22:09] LABS: Appearance,Urine Clear (Clear); Bilirubin,Urine Negative (Negative); Blood,Urine Negative (Negative); Color,Urine Light Yellow; Glucose,Urine (UA) 4+ (Negative); Ketones,Urine Negative (Negative); Leukocyte Esterase,Urine Negative (Negative); Nitrite,Urine Negative (Negative); Protein,Urine Negative (Negative); Specific Gravity,Urine 1.014 (1.001-1.035); Urobilinogen,Urine <2.0 mg/dL (<2.0)
[2018-01-20 22:17] LABS: Partial Thromboplastin Time 23.2 sec (22.0-30.0); Prothrombin Time 9.6 sec (9.0-12.0)
[2018-01-20 22:21] LABS: ALT 18 U/L (9-52); AST 12 U/L (14-36); Albumin 3.6 g/dL (3.5-5.0); Alkaline Phosphatase 69 U/L (38-126); Anion Gap 12 mmol/L; Blood Urea Nitrogen 38 mg/dL (7-17); Calcium 8.7 mg/dL (8.4-10.2); Carbon Dioxide 22 mmol/L (22-30); Chloride 104 mmol/L (98-107); Creatine Kinase 21 U/L (30-135); Glucose 385 mg/dL (74-99); Magnesium 2.1 mg/dL (1.6-2.3); Phosphorus 4.2 mg/dL (2.5-4.5); Potassium 6.1 mmol/L (3.5-5.1); Sodium 138 mmol/L (137-145); Total Bilirubin 0.1 mg/dL (0.2-1.3); Total Protein 6.1 g/dL (6.3-8.2)
[2018-01-20 22:34] LABS: Creatine Kinase MB 0.9 ng/mL (0.0-2.4); Troponin I <0.012 ng/mL (0.000-0.034)
[2018-01-20] MEDS ORDERED: INSULIN REGULAR 100 UNIT/ML VIAL IV ONE (23:19)
[2018-01-20] MEDS ORDERED: SODIUM POLYSTYRENE SULFONATE 15 GM/60 ML BOTTLE PO STA (23:19)
[2018-01-20 23:54] LABS: Glucose,Whole Blood 330 mg/dL (75-99)
[2018-01-21 01:11] LABS: Glucose,Whole Blood 194 mg/dL (75-99)
[2018-01-21 02:37] VITALS: BP 183/82; PULSE 88; RESP 19; TEMP 98.7
== END 2018-01-21 02:31 | disposition home or self-care (01) ==
LOC: EC 20:58
DX: S91.112A Laceration without foreign body of left great toe without damage to nail, initial encounter (principal); E86.0 Dehydration; E11.65 Type 2 diabetes mellitus with hyperglycemia; I25.10 Atherosclerotic heart disease of native coronary artery without angina pectoris; K21.9 Gastro-esophageal reflux disease without esophagitis; E78.5 Hyperlipidemia, unspecified; I10 Essential (primary) hypertension; M79.7 Fibromyalgia; F41.9 Anxiety disorder, unspecified; F32.9 Major depressive disorder, single episode, unspecified; Z96.642 Presence of left artificial hip joint; Z86.73 Personal history of transient ischemic attack (TIA), and cerebral infarction without residual deficits; Z87.891 Personal history of nicotine dependence; Z79.82 Long term (current) use of aspirin; Z79.899 Other long term (current) drug therapy; Z88.1 Allergy status to other antibiotic agents; Z91.048 Other nonmedicinal substance allergy status; Z88.0 Allergy status to penicillin; Z88.2 Allergy status to sulfonamides; Z88.8 Allergy status to other drugs, medicaments and biological substances; Z53.20 Procedure and treatment not carried out because of patient's decision for unspecified reasons; W26.8XXA Contact with other sharp object(s), not elsewhere classified, initial encounter
CPT/HCPCS: 99284; 96374; 96361; 36415 ×2; 93005; 80053; 82550; 82553; 82009; 83735; 84100; 84484; 85025; 85610; 85730; 81003; 87086; J0690